=== PATIENT | male | born 1955 | race Caucasian/White ===

== ENCOUNTER 2016-04-28 14:11 | Inpatient (IN) | payer OTHER ==
[2016-04-28] MEDS ORDERED: Iohexol 350* (CONTRAST) 500 ML MDV IV ONE (17:03)
--- NOTE | 2016-04-28 18:14 | RAD ---
INDICATION: Shortness of breath. Assess for pulmonary embolism. Pancreatic carcinoma. COMPARISON: February 01, [address] and November 12, [address] TECHNIQUE: Multidetector CT images were obtained from the lung apices to the upper abdomen with 65 mL Omnipaque 350 IV contrast. Pulmonary angiogram protocol. Multiplanar reformation including with maximum intensity projection. REPORT: Bilateral patchy groundglass opacities throughout both lungs new compared with the prior CT exams. Small dependent RIGHT pleural effusion. Negative for thoracic lymphadenopathy, cardiomegaly, pericardial effusion. Tip of RIGHT chest port at superior vena cava RIGHT atrial junction. A few small subsegmental pulmonary emboli are visualized at the bilateral posterior basal segments of the lower lobes. Negative for more central pulmonary embolism. Multiple traumatic metastatic lesions with interval increase in size of individual lesions compared with the February 01, 2016 exam. Dominant lesion at the dome of the RIGHT anterior hepatic segment measures up to 3.8 x 3.2 cm compared with 3.3 x 2.5 cm previously. Index lesion at the subcapsular region of the RIGHT posterior hepatic segment on image 104 measures 2.7 x 2.1 cm compared with 2.3 x 1.9 cm previously. No definitive new hepatic lesions visualized. Negative for suspicious focal osseous lesions. IMPRESSION: 1. Moderately severe bilateral patchy groundglass opacities which may reflect infectious etiology or drug reaction. 2. A few small subsegmental pulmonary emboli are visualized at the bilateral posterior basal segments of the lower lobes. Negative for more central pulmonary embolism. 3. Progression of hepatic metastasis compared with the February 01, 2016 exam.
[2016-04-28] MEDS: NS 0.9% 1000 ML* 1,000 ML IV SCH (18:19)
--- NOTE | 2016-04-28 18:28 | RAD ---
INDICATION: Fever. Groundglass interstitial disease and few small subsegmental pulmonary emboli on CT of the same date. COMPARISON: CT angiogram chest the same date. TECHNIQUE: Dual energy PA and routine lateral views of the chest were obtained. REPORT: Mild prominence of the interstitial markings corresponding with interstitial findings on CT of the same date. Grossly clear pleural spaces. Negative for pneumothorax. The heart, pulmonary vasculature, and mediastinal contours are unremarkable. RIGHT chest port tip at level of superior vena cava RIGHT atrial junction. LEFT epigastric surgical clips. IMPRESSION: Interstitial prominence may reflect infectious etiology or potentially drug reaction.
[2016-04-28] MEDS ORDERED: Iohexol 350* (CONTRAST) 500 ML MDV IV NR (19:00)
[2016-04-28] MEDS: Cefepime(*) 2 GM in NS 0.9% 50 ML* 50 ML IVPB SCH (20:10)
[2016-04-28] MEDS: NS 0.9% 1000 ML* 1,000 ML IV ONE ×2 (20:30→22:18)
[2016-04-28] MEDS ORDERED: NS 0.9% 1000 ML* 1,000 ML IV ONE (20:44)
[2016-04-28] MEDS ORDERED: Prochlorperazine TAB* 10 MG PO PRN (20:45)
[2016-04-28] MEDS ORDERED: Ondansetron TAB* 4 MG PO PRN (21:07)
[2016-04-28] MEDS: Omeprazole CAP* 20 MG PO SCH (22:19)
[2016-04-29] MEDS: Temazepam CAP* 15 MG PO PRN ×2 (02:00→02:16)
[2016-04-29] MEDS: Cefepime(*) 2 GM in NS 0.9% 50 ML* 50 ML IVPB SCH ×3 (03:27→20:57)
[2016-04-29] MEDS ORDERED: Enoxaparin(*) 100 MG/ML SYR ONE (07:49)
[2016-04-29] MEDS: Pancrelipase (NF) 12,000 UNITS CAP.DR PO SCH ×2 (08:06→13:21)
--- NOTE | 2016-04-29 08:06 | PN ---
Progress Note - Progress Note SOAP: Subjective: called to see patient for decompensation and hypoxia over night. I was not notified of hypoxia (though did get called on hypotension responsive to fluids) . He is not mentating well this am but is able to tell me that he has pleuritic chest pain and cough. CTA last night read as moderate to severe patchy ground glass opacities and subsegmental small PEs (not called to ordering provider so no lovenox given until this am). Objective: Vital Signs Temp Pulse Resp BP Pulse Ox 98.9 F 122 33 91/48 87 04/29/16 07:32 04/29/16 07:58 04/29/16 07:58 04/29/16 07:32 04/29/16 07:59 ill appearing lying on side perr eomi op dry CTA tachycardic soft nt +bs trace le edema oriented to name and place, clearly somewhat confused, grossly nonfocal CTA: reviewed with Dr. Cooper, moderate to severe bilateral patchy ground glass opacities. very distal low burden PEs. progressive liver disease Acetaminophen (Tylenol Tab*) 650 mg PO Q6H PRN PRN Reason: TEMP > 100.5 Enoxaparin Sodium (Lovenox(*)) 100 mg SUBCUT DAILY [facility] Last Admin: 04/29/16 07:53 Dose: 100 mg Gabapentin (Neurontin Cap(*)) 600 mg PO BEDTIME PRN PRN Reason: SLEEP Sodium Chloride (Ns 0.9% 1000 Ml*) 1,000 mls @ 100 mls/hr IV PER RATE [facility] Last Admin: 04/28/16 18:19 Dose: 100 mls/hr Cefepime HCl 2 gm/ Sodium (Chloride) 50 mls @ 100 mls/hr IVPB Q8H [facility] Last Admin: 04/29/16 03:27 Dose: 100 mls/hr Iohexol (Omnipaque 350 (Contrast)-) 63 ml IV ONCE NR Stop: 04/30/16 17:02 Omeprazole (Prilosec Cap*) 20 mg PO BEDTIME [facility] Last Admin: 04/28/16 22:19 Dose: 20 mg Ondansetron HCl (Zofran Tab*) 4 mg PO Q6H PRN PRN Reason: NAUSEA/VOMITING Oxycodone HCl (Roxycodone Tab*) 5 mg PO Q6H PRN PRN Reason: PAIN Pancrelipase (Creon (Nf)) 12,000 units PO TID WITH MEALS [facility] Last Admin: 04/29/16 08:06 Dose: Not Given Prochlorperazine (Compazine Tab*) 10 mg PO Q6H PRN PRN Reason: NAUSEA Temazepam (Restoril Cap*) 30 mg PO BEDTIME PRN PRN Reason: SLEEP Last Admin: 04/29/16 02:00 Dose: 30 mg Assessment: 61 yo M w metastatic pancreatic cancer on palliative gemcitabine/abraxane presenting with fevers, cough, progressive weakness and pleuritic chest pain. CT with moderate to severe patchy ground glass opacities concerning for atypical infection (?PCP) also with distal PEs. Plan: -lovenox 1.5mg/kg/dy, stat dose given -transfer to ICU, full code per discussion yesterday with FREDY . will continue to address -veterinarian poultry and pulmonary consult, both called -check LDH -on cefepime, will broaden. consider PCP coverage, will defer to above consults -should be past wilmer counts at this point (due for cycle 4 day 1 tomorrow) pancreatic cancer: two lesions slightly larger on CT BUT CA 19-9 much lower suggesting response. will repeat CA 19-9 today.
[2016-04-29 08:24] LABS: Hematocrit 27 % (42-52); Hemoglobin 8.7 g/dl (14.0-18.0); Mean Corpuscular HGB Conc 32 g/dl (31-36); Mean Corpuscular Hemoglobin 30 pg (27-31); Mean Corpuscular Volume 93 fL (80-94); Mean Platelet Volume 7 um3 (7.4-10.4); Red Blood Count 2.91 10^6/ul (4.0-5.4); Red Cell Distribution Width 20 % (10.5-15)
[2016-04-29 08:25] LABS: Add Diff/Slide Review? Slide Review Added; Comments Flag Yes
[2016-04-29 08:38] LABS: Albumin 2.1 g/dL (3.2-5.2); BUN/Creatinine Ratio 18.2 (8-20); Calcium 7.2 mg/dL (8.6-10.3); EGFR African American 194.1 (>60); EGFR Non-African American 150.9 (>60); Globulin 2.2 g/dL (2-4); Potassium 3.5 mmol/L (3.5-5.0); Total Bilirubin 0.7 mg/dL (0.2-1.0); Total Protein 4.3 g/dL (6.4-8.9)
[2016-04-29] MEDS ORDERED: Enoxaparin(*) 100 MG/ML SYR SUBCUT SCH (09:00)
[2016-04-29] MEDS ORDERED: NS 0.9% 1000 ML* 1,000 ML IV ONE (11:48)
--- NOTE | 2016-04-29 11:48 | CONSULT ---
Consult Consult: Consultation Note Critical Care Requesting Physician: Dr Torres Reason for consult: hypoxic resp failure, sepsis Limitations in history/physical: none Date of consult: 04/29/2016 HPI: 61y M with pmhx of Metastatic Pancreatic Ca to Liver, s/p Whipple Procedure in September 2015; s/p chemo 3 cycles since december 2015. Patient reports progressive fatigue, weakness, poor appetite for weeks. Past few days has had cough+, chest pain on deep inspiration, chills, feeling cold, no fevers. denies vom/abd pain/cp/headache/dizziness. no falls. chronic loose bowel movements since whipple procedure. He came to the ER yesterday found to have elevated lactic acid, low blood pressure, borderline tachycardia and wbc elevation. He was admitted to the floor, given IVF bolus to improve blood pressure from 80's to 90s. Lactic acid was initially 2.8. He was also hypoxic to 80s last night and started on facemask. A CT chest PE protocol was ordered and found to have small bilateral subsegemental pulmonary emboli at bases as well as bilateral goundglass opacities, and liver mets. Because of hypoxic, intermittent hypotension and pneumonia he is upgraded to the ICU for respiratory and hemodynamic monitoring. He is awake, alert, able to give history, daughter at the bedside. CT scan results were not obtained till this morning because primary attending was not notified, he was started on anticoagulation and antibiotics this morning. ROS: all negative except for above mentioned positive findings. weight loss+, dec appetite+, cough+, sob+, chest pain+, LE swelling for past few days in feet+ . PMHx: Pancreatic Cancer with liver mets PSHx: Whipple procedure 2015 Family History: breast cancer in mother in her 80s Social History: Alcohol - use to drink 2+ glasses of wine for 22 years, stopped last year, Smoking - none, Drug use none Allergies: NKDA Medications: Home Meds Gabapentin 600 mg PO BEDTIME 09/10/12 [History Confirmed 04/28/16] Temazepam CAP* [Restoril CAP*] 30 mg PO BEDTIME PRN 09/10/12 [History Confirmed 04/28/16] Crestor 10 mg PO DAILY 11/06/15 [History Confirmed 04/28/16] Omeprazole CAP* 20 mg PO DAILY 11/06/15 [History Confirmed 04/28/16] Ondansetron TAB* [Zofran Tab*] 4 mg PO Q6H PRN 04/28/16 [History Confirmed 04/28] Oxycodone HCl [Oxaydo] 5 mg PO Q6HR PRN MDD 20mg 04/28/16 [History Confirmed ] Pancrelipase (NF) [Creon (NF)] 12,000 units PO TID WITH MEALS 04/28/16 [History Confirmed 04/28/16] Prochlorperazine TAB* [Compazine Tab*] 10 mg PO Q6H PRN 04/28/16 [History Confirmed 04/28/16] Current Medications Acetaminophen (Tylenol Tab*) 650 mg PO Q6H PRN PRN Reason: TEMP > 100.5 Enoxaparin Sodium (Lovenox(*)) 70 mg SUBCUT Q12H [facility] Gabapentin (Neurontin Cap(*)) 600 mg PO BEDTIME PRN PRN Reason: SLEEP Sodium Chloride (Ns 0.9% 1000 Ml*) 1,000 mls @ 100 mls/hr IV PER RATE [facility] Last Admin: 04/28/16 18:19 Dose: 100 mls/hr Cefepime HCl 2 gm/ Sodium (Chloride) 50 mls @ 100 mls/hr IVPB Q8H [facility] Last Admin: 04/29/16 03:27 Dose: 100 mls/hr Iohexol (Omnipaque 350 (Contrast)-) 63 ml IV ONCE NR Stop: 04/30/16 17:02 Omeprazole (Prilosec Cap*) 20 mg PO BEDTIME [facility] Last Admin: 04/28/16 22:19 Dose: 20 mg Ondansetron HCl (Zofran Tab*) 4 mg PO Q6H PRN PRN Reason: NAUSEA/VOMITING Oxycodone HCl (Roxycodone Tab*) 5 mg PO Q6H PRN PRN Reason: PAIN Pancrelipase (Creon (Nf)) 12,000 units PO TID WITH MEALS [facility] Last Admin: 04/29/16 08:06 Dose: Not Given Prochlorperazine (Compazine Tab*) 10 mg PO Q6H PRN PRN Reason: NAUSEA Temazepam (Restoril Cap*) 30 mg PO BEDTIME PRN PRN Reason: SLEEP Last Admin: 04/29/16 02:00 Dose: 30 mg Vitals: Vital Signs Temp 99.3 F 04/29/16 12:00 Pulse 92 04/29/16 11:15 Resp 23 04/29/16 11:15 BP 82/46 04/29/16 11:15 Pulse Ox 97 04/29/16 11:19 Intake & Output 04/28/16 04/29/16 04/29/16 18:59 06:59 18:59 Intake Total 290 770 350 Output Total 470 Balance 290 300 350 Weight 149 lb 11.2 oz Intake: IV Fluids 20 NS 0.9% 20 IVPB 50 cefepime 50 Oral 290 700 350 Output: Urine 470 Other: # Voids 1 O2/Vent: HF cannula 60% 25lpm ; rr 24, sat 95% Physical Exam: General - awake, alert, no acute resp distress, uncomfortable appearing but no diaphoresis HEENT pallor+, no icterus, dry mucous membranes Neck no stridor, no jvd CVS tachycardic, normal rhythm, no murmur Resp bilateral air entry, scattered basilar rhales, no wheeze, no distress, no acc muscle use Abdomen soft, nontender, nondistended, no rebound, bowel sounds present Ext pulses+, warm, edema b/l LE 1+ Skin intact, no breakdown, no dryness Neuro awake, alert, orientedx3, moving all extremities, no gross focal deficit Labs: Laboratory Results - last 24 hr 04/28/16 04/29/16 04/29/16 17:08 08:10 08:10 WBC 11.0 H RBC 2.91 L Hgb 8.7 L Hct 27 L MCV 93 MCH 30 MCHC 32 RDW 20 H Plt Count 366 MPV 7 L Neut % (Auto) 90.5 H Lymph % (Auto) 4.1 L Crosby % (Auto) 5.2 Eos % (Auto) 0 Baso % (Auto) 0.2 Absolute Neuts (auto) 10.0 H Absolute Lymphs (auto) 0.4 L Absolute Monos (auto) 0.6 Absolute Eos (auto) 0 Absolute Basos (auto) 0 Absolute Nucleated RBC 0.01 Nucleated RBC % 0.1 Sodium 135 Potassium 3.5 Chloride 106 Carbon Dioxide 22 Anion Gap 7 BUN 10 Creatinine 0.55 L Est GFR ( Amer) 194.1 Est GFR (Non-Af Amer) 150.9 BUN/Creatinine Ratio 18.2 Glucose 84 Lactic Acid 2.8 H* Calcium 7.2 L Total Bilirubin 0.70 AST 72 H ALT 30 Alkaline Phosphatase 198 H Lactate Dehydrogenase 492 H Total Protein 4.3 L Albumin 2.1 L Globulin 2.2 Albumin/Globulin Ratio 1.0 04/29/16 08:10 WBC RBC Hgb Hct MCV MCH MCHC RDW Plt Count MPV Neut % (Auto) Lymph % (Auto) Crosby % (Auto) Eos % (Auto) Baso % (Auto) Absolute Neuts (auto) Absolute Lymphs (auto) Absolute Monos (auto) Absolute Eos (auto) Absolute Basos (auto) Absolute Nucleated RBC Nucleated RBC % Sodium Potassium Chloride Carbon Dioxide Anion Gap BUN Creatinine Est GFR ( Amer) Est GFR (Non-Af Amer) BUN/Creatinine Ratio Glucose Lactic Acid 1.8 Calcium Total Bilirubin AST ALT Alkaline Phosphatase Lactate Dehydrogenase Total Protein Albumin Globulin Albumin/Globulin Ratio Imaging: CT chest results 04/28 reviewed - scattered groundglass infiltrates, subsegmental PE at bases, liver mets CXR 04/28 - reviewed Assessment: 61yM with metastatis pancreatic Ca admitted for lethargy, signs of sepsis; upgraded to ICU for hypoxia, hypotension, found to have bilateral subseg PE and ground glass infiltrates. -Acute Hypoxic Respiratory Failure -Multifocal infiltrates, suspicious for pneumonia, possible atypical origin -Bilateral Pulmonary Emboli -Hypotension, hypovolemia component, underlying sepsis+ -Severe Sepsis -Metastatic Pancreatic Cancer -Anemia, chronic disease Plan: Neuro- stable, awake, no focal deficit CVS- sepsis protocol. rescucitate with IVF, lactic acid improved. give 2 liters IVF bolus. repeat lactic acid. follow urine outputs. abx started. blood cx to be sent. goal to keep MAP>65 Resp- now on HF NC, saturations in mid 90s, not too tachypneic. wean fio2 to keep sat>92%. looks mildly distressed. infiltrates can be CAP vs atypical origin. pulm consult on board for possible bronch if required. resp cultures. albuterol q4h prn. steroids will be started low dose to cover for possible PCP 40mg po daily. increase A-A gradient. cxr in am. Change lovenox to 70mg sq bid therapeutic dose. ID- started on cefepime. send blood cx. resp cx. will add doxycycline and bactrim to cover atypical organisms. LDH elevated. GI- cont regular diet. GI prophylaxis. antiemetics prn. aspiration precautions. Renal- IVF hydration, follow urine output, follow lytes. no grimm. Heme- anemia. no occult bleeding. Lovenox 1mg/kg bid started for PE treatment. check LE duplex. plt normal. Endo- follow blood sugars. Musculsk- bed rest for now. pressure ulcer prophylaxis. oob to chair if able. DVT prophylaxis - lovenox sq GI prophylaxis -pepcid Central Line - none Arterial Line - none Grimm Cathetor - none Total Critical Care time is 35 minutes, excluding procedures/teaching Arash Corbin Cigarette Examiner
[2016-04-29] MEDS ORDERED: Albuterol 2.5 MG/3 ML NEB.SOL* (0.083%) INH PRN (13:19)
--- NOTE | 2016-04-29 13:45 | RAD ---
Indication: Pulmonary embolus. Duplex Doppler sonography of the deep venous system of both lower extremities was performed. Bilaterally the common femoral veins, proximal greater saphenous veins, proximal deep femoral veins, femoral veins, popliteal veins, posterior tibial veins and peroneal veins appear patent and compressible. IMPRESSION: NO EVIDENCE OF DEEP VENOUS THROMBOSIS OF EITHER LOWER EXTREMITY IS PRESENT. PERONEAL VEINS ARE NOT VISUALIZED BILATERALLY.
[2016-04-29] MEDS ORDERED: NS 0.9% 1000 ML* 1,000 ML IV SCH (15:45)
[2016-04-29] MEDS: DOXYcycline IV* 100 MG in NS 0.9% 250 ML* 250 ML IVPB SCH (15:50)
--- NOTE | 2016-04-29 16:57 | CONS ---
PULMONARY CONSULTATION REPORT: DATE OF CONSULT: 04/29/16 CONSULTATION REQUESTED BY: Dr. Chloe Torres. REASON FOR CONSULT: Evaluation of hypoxemia and CT chest abnormalities. HISTORY OF PRESENT ILLNESS: The patient is a 61-year-old male with a history of metastatic pancreatic cancer with mets to the liver, status post Whipple procedure in September of 2015 and status post chemo 3 cycles. The patient was admitted for evaluation of progressive fatigue, weakness, and decreased oral intake. The patient also reported dry cough and chest discomfort with deep inspiration, feeling cold. The patient denied fevers, nausea, vomiting, abdominal pain, chest pain, headache, dizziness, or neck stiffness. The patient has chronic loose stools since Whipple procedure. The patient was noted to have elevated lactic acid on labs done yesterday, was also hypotensive , and borderline tachycardic with leukocytosis. He was given IV fluids while on the regular medical floor. The patient's lactic acid was elevated at 2.8 upon admission, repeat labs showed improvement in lactic acid levels to normal limits. Overnight, the patient continued to deteriorate, became hypoxemic requiring high FiO2. A CT scan of the chest was performed which was done last night for evaluation of shortness of breath and pleuritic chest pain. The patient was transferred to ICU this morning for continued deterioration while on regular medical floor and given increased need for respiratory and hemodynamic monitoring. I have personally reviewed CT scan of the chest. The patient noted to have patchy bilateral ground-glass opacities predominantly in the lower lung zones. No significant mediastinal or hilar adenopathy was noted. There was also evidence of air bronchograms in the lower lobes. Evidence of mild bronchiectasis was also noted. Trachea was mildly enlarged in size. There was also progression of the liver mets. The patient also noted to have small subsegmental filling defects. The patient is currently being closely monitored in the ICU. The patient is drowsy; however, arousable easily to verbal stimuli. The patient reports feeling foggy. The patient denies shortness of breath. He reports chest discomfort with deep inspiration which has been present since admission and reports that is slightly improved. He reports significant fatigue currently. He was initiated on broad-spectrum antibiotics and Lovenox this morning. He is also receiving IV hydration. PAST MEDICAL HISTORY: Pancreatic cancer with liver mets, status post Whipple procedure in 2015. MEDICATIONS: At home: 1. Gabapentin. 2. Prochlorperazine. 3. Crestor. 4. Omeprazole. 5. Ondansetron. 6. Oxycodone. 7. Pancrelipase. 8. ALLERGIES: No known drug allergies. FAMILY HISTORY: Breast cancer in mother. SOCIAL HISTORY: Used to drink 2 glasses of wine, stopped last year. Denied smoking or drug abuse. REVIEW OF SYSTEMS: All systems reviewed and per HPI. PHYSICAL EXAM: The patient in bed, in no apparent distress while on high-flow O2. Arousable to verbal stimuli, answers questions appropriately, mildly confused. Vital Signs: Temperature is 99.3, heart rate 74 beats per minute, respiratory rate 18 per minute, O2 sat 94% on 50% FiO2, blood pressure 90/48. HEENT: Pupils equal, reactive to light, mucous membranes moist. Lungs: Good air entry bilaterally, fine crackles at the bases, no wheeze. Cardiovascular: S1, S2 present. Regular. Abdomen: Soft, nontender, nondistended. Bowel sounds present. Neuro: No focal deficits. Confused, oriented to self and place. Skin: No rash or bruise. DIAGNOSTIC STUDIES/LAB DATA: WBC count 11, hemoglobin 8.7, hematocrit 27, platelet count 366 with left shift. Sodium 135, potassium 3.5, chloride 106, bicarb 22, BUN 10, creatinine 0.5. Lactic acid 2.8 last night, repeat level of 1.8. LFTs elevated. LDH 492. CT of the chest as described above in HPI. Venous Doppler negative for DVT. IMPRESSION AND RECOMMENDATIONS: A 61-year-old male with a history of pancreatic cancer, on chemotherapy, admitted with worsening fatigue, chest discomfort, shortness of breath, and chills with bilateral ground-glass opacities and hypotension. Sepsis secondary to pneumonia. Ground-glass opacities bilaterally, likely community-acquired pneumonia, possibility of PCP pneumonia. Hypoxemic respiratory failure secondary to underlying pneumonia and pulmonary embolism. The patient being currently closely monitored in the ICU. The patient is significantly hypoxemic at this time, however, is stable. The patient not in need of intubation at this time. Continue with O2 supplementation as needed. The patient not stable for bronchoscopy at this time given significant hypoxemia which could worsen with BAL and bronchoscopy and sedation. Will empirically treat the patient for PCP pneumonia and community-acquired pneumonia. Management of sepsis as per lapidarist. Thank you for allowing me to participate in the care of your patient. Will follow up with you. Case discussed with Dr. Chloe Torres and Dr. Arash Corbin, lapidarist. [id number]/[facility] #: [id number] JIMMIE
[2016-04-29] MEDS: Acetaminophen TAB* 325 MG PO PRN (17:38)
[2016-04-29] MEDS: Pancrelipase CAP* 5,000 UNITS CAP PO SCH (17:38)
[2016-04-29] MEDS: Sulfamethox/Trimethoprim DS 800/160* TAB PO SCH (17:38)
[2016-04-29] MEDS: NS 0.9% 1000 ML* 1,000 ML IV SCH (18:16)
[2016-04-29] MEDS: Gabapentin CAP(*) 300 MG PO PRN (20:57)
[2016-04-29] MEDS: Enoxaparin(*) 80 MG/0.8 ML SYR SUBCUT SCH (20:58)
[2016-04-29] MEDS: Omeprazole CAP* 20 MG PO SCH (20:58)
[2016-04-29] MEDS ORDERED: Famotidine TAB* 20 MG PO SCH (21:00)
[2016-04-30] MEDS: Sulfamethox/Trimethoprim DS 800/160* TAB PO SCH ×5 (00:30→23:41)
[2016-04-30] MEDS: DOXYcycline IV* 100 MG in NS 0.9% 250 ML* 250 ML IVPB SCH ×2 (03:00→14:48)
[2016-04-30 08:18] LABS: Hematocrit 26 % (42-52); Hemoglobin 8.2 g/dl (14.0-18.0); Mean Corpuscular HGB Conc 31 g/dl (31-36); Mean Corpuscular Hemoglobin 30 pg (27-31); Mean Corpuscular Volume 94 fL (80-94); Mean Platelet Volume 7 um3 (7.4-10.4); Red Blood Count 2.77 10^6/ul (4.0-5.4); Red Cell Distribution Width 21 % (10.5-15); White Blood Count 11.4 10^3/ul (3.5-10.8)
[2016-04-30] MEDS: Pancrelipase CAP* 5,000 UNITS CAP PO SCH ×3 (08:28→18:09)
[2016-04-30] MEDS: Cefepime(*) 2 GM in NS 0.9% 50 ML* 50 ML IVPB SCH ×2 (08:28→21:05)
[2016-04-30 08:30] LABS: Albumin 1.9 g/dL (3.2-5.2); BUN/Creatinine Ratio 19.6 (8-20); Calcium 6.9 mg/dL (8.6-10.3); EGFR African American 238.6 (>60); EGFR Non-African American 185.5 (>60); Magnesium 1.7 mg/dL (1.9-2.7); Potassium 3.5 mmol/L (3.5-5.0); Total Bilirubin 0.5 mg/dL (0.2-1.0); Total Protein 3.9 g/dL (6.4-8.9)
--- NOTE | 2016-04-30 08:40 | RAD ---
INDICATION: Evaluate infiltrates COMPARISON: Most recent comparison chest x-rays dated April 28, 2016 TECHNIQUE: Single AP portable view of the chest was obtained. FINDINGS: Image quality is compromised due to the relative inferiority of a portable chest x-ray. The right subclavian vein Mediport is unchanged in position with the tip terminating in the superior vena cava. The heart and mediastinum exhibit normal size and contour. There has been progression of the appearance of density overlying the bilateral rito extending superiorly along the medial aspects of the upper lung lobes. There is worsening blunting of the right costophrenic angle. Visualized bones are normal for the patient's age. IMPRESSION: Interval worsening aeration when compared to the April 28, 2016 chest x-ray with findings that could be related to worsening congestive heart failure.
--- NOTE | 2016-04-30 09:11 | PN ---
Progress Note - Progress Note Note: Progress Note Critical Care 24 hour events/significant events: -transferred to ICU yesterday -overnight remained on HF NC, BP still labile but mostly in 90s now -IVF boluses; started on bactrim and doxycycline for empiric coverage. -he states some pleuritic chest pain, making urine, no diarrhea/fever/chills/n/v /headache. Vitals: Vital Signs Temp 99.4 F 04/30/16 07:53 Pulse 82 04/30/16 08:00 Resp 22 04/30/16 08:00 BP 100/60 04/30/16 08:00 Pulse Ox 100 04/30/16 08:00 Intake & Output 04/29/16 04/30/16 04/30/16 18:59 06:59 18:59 Intake Total 2820 2892 Output Total 660 850 Balance 2160 2042 Weight 162 lb 7.691 oz Intake: IV Fluids 1550 NS 0.9% 1500 cefepime 50 IVPB 2442 NS 0.9% 2392 cefepime 50 Oral 1270 450 Output: Urine 660 850 O2/Vent: HF 13L, sat 100%, rr 18-22 Infusions: NS @ 100cc/hour Medications: Current Medications Acetaminophen (Tylenol Tab*) 650 mg PO Q6H PRN PRN Reason: TEMP > 100.5 Last Admin: 04/29/16 17:38 Dose: 650 mg Albuterol (Ventolin 2.5 Mg/3 Ml Neb.Angelica*) 2.5 mg INH Q4H PRN PRN Reason: SOB/WHEEZING Enoxaparin Sodium (Lovenox(*)) 70 mg SUBCUT Q12H [facility] Last Admin: 04/29/16 20:58 Dose: 70 mg Gabapentin (Neurontin Cap(*)) 600 mg PO BEDTIME PRN PRN Reason: SLEEP Last Admin: 04/29/16 20:57 Dose: 600 mg Sodium Chloride (Ns 0.9% 1000 Ml*) 1,000 mls @ 100 mls/hr IV PER RATE [facility] Last Admin: 04/29/16 18:16 Dose: 100 mls/hr Doxycycline Hyclate 100 mg/ (Sodium Chloride) 250 mls @ 250 mls/hr IVPB Q12H [facility] Last Admin: 04/30/16 03:00 Dose: 250 mls/hr Cefepime HCl 2 gm/ Sodium (Chloride) 50 mls @ 100 mls/hr IVPB Q12HR [facility] Last Admin: 04/30/16 08:28 Dose: 100 mls/hr Sodium Chloride (Ns 0.9% 1000 Ml*) 1,000 mls @ 100 mls/hr IV PER RATE [facility] Last Admin: 04/29/16 18:15 Dose: 100 mls/hr Iohexol (Omnipaque 350 (Contrast)-) 63 ml IV ONCE NR Stop: 04/30/16 17:02 Omeprazole (Prilosec Cap*) 20 mg PO BEDTIME [facility] Last Admin: 04/29/16 20:58 Dose: 20 mg Ondansetron HCl (Zofran Tab*) 4 mg PO Q6H PRN PRN Reason: NAUSEA/VOMITING Oxycodone HCl (Roxycodone Tab*) 5 mg PO Q6H PRN PRN Reason: PAIN Pancrelipase (Zenpep Delayed Cap*) 15,000 units PO TID WITH MEALS [facility] Last Admin: 04/30/16 08:28 Dose: 15,000 units Prochlorperazine (Compazine Tab*) 10 mg PO Q6H PRN PRN Reason: NAUSEA Temazepam (Restoril Cap*) 30 mg PO BEDTIME PRN PRN Reason: SLEEP Last Admin: 04/29/16 02:00 Dose: 30 mg Trimethoprim/Sulfamethoxazole (Bactrim Ds 800/160 Tab*) 2 tab PO Q6HR [facility] Last Admin: 04/30/16 05:41 Dose: 2 tab Physical Exam: General - awake, alert, no acute resp distress, comfortable appearing, not diaphoretic HEENT- pallor+, no icterus, moist mucous membranes Neck- no stridor, no jvd CVS- not tachycardic, normal rhythm, no murmur Resp- bilateral air entry, scattered basilar rhales, no wheeze, no distress, no acc muscle use Abdomen- soft, nontender, nondistended, no rebound, bowel sounds present Ext- pulses+, warm, edema b/l LE 1+ Skin- intact, no breakdown, no dryness Neuro- awake, alert, orientedx3, moving all extremities, no gross focal deficit Labs: Laboratory Results - last 24 hr 04/29/16 04/30/16 04/30/16 15:01 08:00 08:00 WBC 11.4 H RBC 2.77 L Hgb 8.2 L Hct 26 L MCV 94 MCH 30 MCHC 31 RDW 21 H Plt Count 349 MPV 7 L Neut % (Auto) 89.3 H Lymph % (Auto) 4.5 L [place] % (Auto) 5.4 Eos % (Auto) 0.3 Baso % (Auto) 0.5 Absolute Neuts (auto) 10.2 H Absolute Lymphs (auto) 0.5 L Absolute Monos (auto) 0.6 Absolute Eos (auto) 0 Absolute Basos (auto) 0.1 Absolute Nucleated RBC 0 Nucleated RBC % 0 Sodium 137 Potassium 3.5 Chloride 110 Carbon Dioxide 22 Anion Gap 5 BUN 9 Creatinine 0.46 L Est GFR ( Amer) 238.6 Est GFR (Non-Af Amer) 185.5 BUN/Creatinine Ratio 19.6 Glucose 76 Lactic Acid Calcium 6.9 L Magnesium 1.7 L Total Bilirubin 0.50 AST 83 H ALT 32 Alkaline Phosphatase 215 H Total Protein 3.9 L Albumin 1.9 L Globulin 2.0 Albumin/Globulin Ratio 1.0 Influenza A (Rapid) Negative Influenza B (Rapid) Negative 04/30/16 08:00 WBC RBC Hgb Hct MCV MCH MCHC RDW Plt Count MPV Neut % (Auto) Lymph % (Auto) [place] % (Auto) Eos % (Auto) Baso % (Auto) Absolute Neuts (auto) Absolute Lymphs (auto) Absolute Monos (auto) Absolute Eos (auto) Absolute Basos (auto) Absolute Nucleated RBC Nucleated RBC % Sodium Potassium Chloride Carbon Dioxide Anion Gap BUN Creatinine Est GFR ( Amer) Est GFR (Non-Af Amer) BUN/Creatinine Ratio Glucose Lactic Acid 1.2 Calcium Magnesium Total Bilirubin AST ALT Alkaline Phosphatase Total Protein Albumin Globulin Albumin/Globulin Ratio Influenza A (Rapid) Influenza B (Rapid) Imaging: CT chest results 04/28 reviewed - scattered groundglass infiltrates, subsegmental PE at bases, liver mets CXR 04/28 - reviewed cxr 04/30 - increased pulm vasc congestion compared to yesterday LE venous duplex 04/29 - negative for DVT Assessment: 61yM with metastatis pancreatic Ca admitted for lethargy, signs of sepsis; upgraded to ICU for hypoxia, hypotension, found to have bilateral subseg PE and ground glass infiltrates. -Acute Hypoxic Respiratory Failure -Multifocal infiltrates, suspicious for pneumonia, possible atypical origin -Bilateral Pulmonary Emboli -Hypotension, hypovolemia component, underlying sepsis+ -Severe Sepsis -Metastatic Pancreatic Cancer -Anemia, chronic disease Plan: Neuro- stable, awake, no focal deficit CVS- sepsis protocol. IVF boluses given, now no maintainence infusion. lactic acid improved. bp still 90s, less tachycardic. still has intermittent pleuritic chest pain. Resp- now on HF NC 13L, saturations 100%, rr stable, no worsening tachypnea. wean fio2 to keep sat>92%. infiltrates can be CAP vs atypical origin. holding on bronchoscopy due to hypoxia, risk of intubation. resp cultures pending. albuterol q4h prn. no steroids. Lovenox 70mg sq bid for PE tx. may benefit from low dose lasix today to unload pulm congestion. ID- cefepime day#2, bactrim DS PCP tx day #2, doxy day#2. blood cx pending. resp cx if possible. LDH elevated. ID consult appreciated for further input. GI- cont regular diet. GI prophylaxis. antiemetics prn. aspiration precautions. Renal- IVF hydration, dec ivf to ns 50cc/hour, follow urine output, follow lytes. no grimm. Heme- anemia. no occult bleeding. Lovenox 70mg sq bid for PE tx. LE duplex negative. Endo- follow blood sugars. Musculsk- bed rest for now. pressure ulcer prophylaxis. oob to chair if able. DVT prophylaxis - lovenox sq GI prophylaxis -pepcid Central Line - none Arterial Line - none Grimm Cathetor - none Code Status: Full Code Disposition: ICU for hypoxic respiratory failure, suspected sepsis Total Critical Care time is 35 minutes, excluding procedures/teaching Arash Corbin MD Draw Fire Operator
[2016-04-30] MEDS: Enoxaparin(*) 80 MG/0.8 ML SYR SUBCUT SCH ×2 (10:01→21:05)
--- NOTE | 2016-04-30 10:22 | PN ---
Progress Note - Progress Note SOAP: Subjective: feels better than yesterday am. able to give me a better history. reports 4-5 weeks of progressive fatigue, cough and shaking chills at home. reports difficulty hearing when his oxygen is on. Objective: Vital Signs Temp Pulse Resp BP Pulse Ox 99.4 F 82 22 100/60 100 04/30/16 07:53 04/30/16 08:00 04/30/16 08:00 04/30/16 08:00 04/30/16 08:00 sitting up in a chair on salter breathing comfortably perr eomi op dry CTA bl s1 s2 nl soft nt +Bs trace le edema A+O x 3, nonfocal neurological exam Laboratory Results - last 24 hr 04/29/16 04/30/16 04/30/16 15:01 08:00 08:00 WBC 11.4 H RBC 2.77 L Hgb 8.2 L Hct 26 L MCV 94 MCH 30 MCHC 31 RDW 21 H Plt Count 349 MPV 7 L Neut % (Auto) 89.3 H Lymph % (Auto) 4.5 L [place] % (Auto) 5.4 Eos % (Auto) 0.3 Baso % (Auto) 0.5 Absolute Neuts (auto) 10.2 H Absolute Lymphs (auto) 0.5 L Absolute Monos (auto) 0.6 Absolute Eos (auto) 0 Absolute Basos (auto) 0.1 Absolute Nucleated RBC 0 Nucleated RBC % 0 Sodium 137 Potassium 3.5 Chloride 110 Carbon Dioxide 22 Anion Gap 5 BUN 9 Creatinine 0.46 L Est GFR ( Amer) 238.6 Est GFR (Non-Af Amer) 185.5 BUN/Creatinine Ratio 19.6 Glucose 76 Lactic Acid Calcium 6.9 L Magnesium 1.7 L Total Bilirubin 0.50 AST 83 H ALT 32 Alkaline Phosphatase 215 H Total Protein 3.9 L Albumin 1.9 L Globulin 2.0 Albumin/Globulin Ratio 1.0 Influenza A (Rapid) Negative Influenza B (Rapid) Negative 04/30/16 08:00 WBC RBC Hgb Hct MCV MCH MCHC RDW Plt Count MPV Neut % (Auto) Lymph % (Auto) [place] % (Auto) Eos % (Auto) Baso % (Auto) Absolute Neuts (auto) Absolute Lymphs (auto) Absolute Monos (auto) Absolute Eos (auto) Absolute Basos (auto) Absolute Nucleated RBC Nucleated RBC % Sodium Potassium Chloride Carbon Dioxide Anion Gap BUN Creatinine Est GFR ( Amer) Est GFR (Non-Af Amer) BUN/Creatinine Ratio Glucose Lactic Acid 1.2 Calcium Magnesium Total Bilirubin AST ALT Alkaline Phosphatase Total Protein Albumin Globulin Albumin/Globulin Ratio Influenza A (Rapid) Influenza B (Rapid) Acetaminophen (Tylenol Tab*) 650 mg PO Q6H PRN PRN Reason: TEMP > 100.5 Last Admin: 04/29/16 17:38 Dose: 650 mg Albuterol (Ventolin 2.5 Mg/3 Ml Neb.Angelica*) 2.5 mg INH Q4H PRN PRN Reason: SOB/WHEEZING Enoxaparin Sodium (Lovenox(*)) 70 mg SUBCUT Q12H [facility] Last Admin: 04/30/16 10:01 Dose: 70 mg Gabapentin (Neurontin Cap(*)) 600 mg PO BEDTIME PRN PRN Reason: SLEEP Last Admin: 04/29/16 20:57 Dose: 600 mg Sodium Chloride (Ns 0.9% 1000 Ml*) 1,000 mls @ 100 mls/hr IV PER RATE [facility] Last Admin: 04/29/16 18:16 Dose: 100 mls/hr Doxycycline Hyclate 100 mg/ (Sodium Chloride) 250 mls @ 250 mls/hr IVPB Q12H [facility] Last Admin: 04/30/16 03:00 Dose: 250 mls/hr Cefepime HCl 2 gm/ Sodium (Chloride) 50 mls @ 100 mls/hr IVPB Q12HR [facility] Last Admin: 04/30/16 08:28 Dose: 100 mls/hr Sodium Chloride (Ns 0.9% 1000 Ml*) 1,000 mls @ 50 mls/hr IV PER RATE [facility] Iohexol (Omnipaque 350 (Contrast)-) 63 ml IV ONCE NR Stop: 04/30/16 17:02 Omeprazole (Prilosec Cap*) 20 mg PO BEDTIME [facility] Last Admin: 04/29/16 20:58 Dose: 20 mg Ondansetron HCl (Zofran Tab*) 4 mg PO Q6H PRN PRN Reason: NAUSEA/VOMITING Oxycodone HCl (Roxycodone Tab*) 5 mg PO Q6H PRN PRN Reason: PAIN Pancrelipase (Zenpep Delayed Cap*) 15,000 units PO TID WITH MEALS [facility] Last Admin: 04/30/16 08:28 Dose: 15,000 units Prochlorperazine (Compazine Tab*) 10 mg PO Q6H PRN PRN Reason: NAUSEA Temazepam (Restoril Cap*) 30 mg PO BEDTIME PRN PRN Reason: SLEEP Last Admin: 04/29/16 02:00 Dose: 30 mg Trimethoprim/Sulfamethoxazole (Bactrim Ds 800/160 Tab*) 2 tab PO Q6HR [facility] Last Admin: 04/30/16 05:41 Dose: 2 tab Assessment: 61 yo M w PMH of metastatic pancreatic cancer on palliative gemcitabine/ abraxane admitted with fevers, chills, cough, hypoxia and progressive respiratory distress and found to have bilateral ground glass opacities and distal PEs. Clinically improving with current treatment, though still requiring significant O2. I discussed several issues at length with Armani and his daughter. 1)Pancreatic cancer: -his imaging shows slight progression of his disease by size but minimal with no new lesions and his CA 19-9 previously had been responding nicely. Given this I would repeat his tumor markers and if stable or decreasing I would likely give more gemcitabine/abraxane if he recovers from this illness. I would dose reduce for tolerance. 2)respiratory distress: improving with current management. agree with ID consultation. -cont lovenox for PE, I am ok with once daily dosing, but bid for procedures ok too we discussed code status at length. We reviewed the palliative nature of his treatments. He has expressed a desire to be DNR/DNI, though does want all medical interventions short of this. a MOLST was filled out.
--- NOTE | 2016-04-30 13:40 | CONS ---
CONSULTATION REPORT: DATE OF CONSULT: 04/30/16 REQUESTING PHYSICIAN: Dr. Corbin. CONSULTING SERVICE: Infectious Disease. REASON FOR CONSULT: Fever, hypoxia, and pneumonia. IMPRESSION: 1. Progressive dyspnea, hypoxia, acute hypoxemic respiratory failure, with fever and chills. CT scan shows bilateral ground-glass opacification in a man on chemotherapy, infection is on the differential which include the usual bacteria like pneumococcus and haemophilus, though I think those are less likely given the time course, atypicals are consideration as well, for fungal infection, pneumocystis is on the list, I think histoplasmosis or aspergillus less likely, could have a viral infection including adenovirus or human metapneumovirus. He also has been found to have pulmonary emboli. 2. Pancreatic cancer, status post Whipple's procedure with metastasis to the liver, ongoing chemotherapy. RECOMMENDATION: 1. Agree with cefepime and doxycycline to cover the usual community-acquired pneumonia organisms as well as Bactrim to cover pneumocystis pneumonia, I would add corticosteroids as adjunctive therapy. 2. Sputum culture if he is able to produce anything and would include a silver stain or pneumocystis PCR if he coughs anything up. HISTORY OF PRESENT ILLNESS: This is a 61-year-old man with metastatic pancreatic cancer, on chemotherapy, admitted with dyspnea and hypoxia. He was also found to have altered mental status initially which has improved with hydration. He can provide some details of his history. For the last 2 to 3 weeks, he has had progressive dyspnea including now at rest. He has had decreasing energy. He has not been eating or drinking much. He has felt quite dehydrated, was seen in the oncology office yesterday, was hypotensive, dehydrated, and altered, and so came to the hospital yesterday. He notes ongoing chills, night sweats, and nonproductive cough, but no overt fever. His initial oxygen saturation was in the mid 80s. He received supplemental oxygen. Blood pressure was in the 90s. He was started on IV fluids. Started on cefepime, doxycycline, and Bactrim overnight. He had a temperature of 38.3 actually earlier this morning and he had some sweats last night and chills. His energy and alertness, he feels, are improved. His dyspnea is about the same , but does not feel bad while he is at rest now with supplemental oxygen. He has not been up out of bed or chair. CT scan of the chest was done that showed bilateral patchy ground-glass opacification and subsegmental pulmonary emboli. His LDH is 492. His white count is 11. Influenza PCR was negative. He has had no sick contacts, he has had no diarrhea or muscle aches. He has been confined to bed at home, has not been doing any projects outside or in any [place], garages, or had any animal exposure except for the old cats at home. PAST MEDICAL HISTORY: 1. Pancreatic cancer, status post Whipple's procedure, now with metastatic disease to the liver, on chemotherapy. He was also treated with body radiation therapy in September 2015. 2. History of a right ankle fixation and subsequent hardware removal. MEDICATIONS: 1. Tylenol. 2. Albuterol inhaler. 3. Cefepime 2 g every 12 hours. 4. Doxycycline 100 mg every 12 hours. 5. Enoxaparin. 6. Gabapentin. 7. Zofran. 8. Pancrelipase. 9. Prochlorperazine. 10. Bactrim 2 tabs double strength by mouth every 6 hours. 11. Temazepam p.r.n. 12. Methylprednisolone 40 mg a day. ALLERGIES: No known drug allergies. FAMILY HISTORY: No recurrent infections. SOCIAL HISTORY: Lives in [place] with his daughter and son. Have a couple of cats there, no kittens. No travel. No sick contacts. REVIEW OF SYSTEMS: All negative except as noted above. PHYSICAL EXAM: Vital Signs: Temperature is 37.4, heart rate 90, respiratory rate 18, blood pressure 105/76, O2 sat 99% on 6 L. In general, he is awake and in no acute distress. Neurologically, he is oriented x3. Follows all commands , moves all extremities. HEENT: There is no conjunctival hemorrhage. Oropharynx without lesions. Neck: Neck is supple without nuchal rigidity. Lymph Nodes: There is no cervical, supraclavicular, inguinal, axillary, or epitrochlear lymphadenopathy. Heart has regular rate and rhythm without murmurs , rubs, or gallops. Lungs are clear to auscultation bilaterally though diminished at the bases bilaterally. He does have one sentence dyspnea. Abdomen: Soft, nontender, nondistended without hepatosplenomegaly. Skin: There is no rash or splinter hemorrhages. Musculoskeletal: There is no spine tenderness to palpation. LABORATORY DATA: Influenza PCR negative. White blood cell count 11.4, hemoglobin 8.2, MCV 94, platelets 349. Creatinine is 0.4. Please see impressions and recommendations as outlined above which I have discussed with Dr. Torres and . Thanks for asking me to see Nikhil Raul in consultation. [id number]/[facility] #: [id number] MTDD
--- NOTE | 2016-04-30 17:17 | PN ---
Progress Note - Progress Note Note: Pt seen and examined at bedside. Pt reported feeling about the same. Appears more alert. Active Medications Generic Name Dose Route Start Last Admin Trade Name Freq PRN Reason Stop Dose Admin Acetaminophen 650 mg 04/28/16 16:56 04/29/16 17:38 Tylenol Tab* PO 650 mg Q6H PRN Administration TEMP > 100.5 Albuterol 2.5 mg 04/29/16 13:19 Ventolin 2.5 Mg/3 Ml Neb.Angelica* INH Q4H PRN SOB/WHEEZING Enoxaparin Sodium 70 mg 04/29/16 22:00 04/30/16 10:01 Lovenox(*) SUBCUT 70 mg Q12H [facility] Administration Gabapentin 600 mg 04/28/16 20:16 04/29/16 20:57 Neurontin Cap(*) PO 600 mg BEDTIME PRN Administration SLEEP Sodium Chloride 1,000 mls @ 100 mls/hr 04/28/16 17:00 04/29/16 18:16 Ns 0.9% 1000 Ml* IV 100 mls/hr PER RATE [facility] Administration Doxycycline Hyclate 100 mg/ 250 mls @ 250 mls/hr 04/29/16 14:00 04/30/16 14: 48 Sodium Chloride IVPB 250 mls/hr Q12H [facility] Administration Cefepime HCl 2 gm/ Sodium 50 mls @ 100 mls/hr 04/29/16 21:00 04/30/16 08:28 Chloride IVPB 100 mls/hr Q12HR [facility] Administration Sodium Chloride 1,000 mls @ 50 mls/hr 04/30/16 09:14 Ns 0.9% 1000 Ml* IV PER RATE [facility] Methylprednisolone Sodium Succinate 40 mg 05/01/16 09:00 Solu-Medrol* IV DAILY [facility] Omeprazole 20 mg 04/28/16 21:00 04/29/16 20:58 Prilosec Cap* PO 20 mg BEDTIME [facility] Administration Ondansetron HCl 4 mg 04/28/16 21:07 Zofran Tab* PO Q6H PRN NAUSEA/VOMITING Oxycodone HCl 5 mg 04/28/16 20:54 Roxycodone Tab* PO Q6H PRN [facility] Pancrelipase 15,000 units 04/29/16 17:00 04/30/16 12:06 Zenpep Delayed Cap* PO Not Given TID WITH MEALS [facility] Prochlorperazine 10 mg 04/28/16 20:45 Compazine Tab* PO Q6H PRN NA[facility] Temazepam 30 mg 04/28/16 20:16 04/29/16 02:00 Restoril Cap* PO 30 mg BEDTIME PRN Administration SLEEP Trimethoprim/Sulfamethoxazole 2 tab 04/29/16 18:00 04/30/16 12:08 Bactrim Ds 800/160 Tab* PO 2 tab Q6HR [facility] Administration Vital Signs Temp Pulse Resp BP Pulse Ox 98 F 76 18 98/61 99 04/30/16 11:50 04/30/16 16:30 04/30/16 16:51 04/30/16 16:30 04/30/16 16:30 Physical Exam: General - awake, alert, no acute resp distress HEENT- PERRLA, no icterus, moist mucous membranes Neck- no stridor, no jvd CVS- s1, S2+, normal rhythm, no murmur Resp- bilateral air entry, scattered basilar rhales, no wheeze Abdomen- soft, nontender, nondistended, bowel sounds present Ext- pulses+, warm, edema b/l LE 1+ Skin- intact, no rash, no dryness Neuro- awake, alert, oriented x3, no focal defecits Labs: Laboratory Results - last 24 hr 04/29/16 04/30/16 04/30/16 15:01 08:00 08:00 WBC 11.4 H RBC 2.77 L Hgb 8.2 L Hct 26 L MCV 94 MCH 30 MCHC 31 RDW 21 H Plt Count 349 MPV 7 L Neut % (Auto) 89.3 H Lymph % (Auto) 4.5 L [place] % (Auto) 5.4 Eos % (Auto) 0.3 Baso % (Auto) 0.5 Absolute Neuts (auto) 10.2 H Absolute Lymphs (auto) 0.5 L Absolute Monos (auto) 0.6 Absolute Eos (auto) 0 Absolute Basos (auto) 0.1 Absolute Nucleated RBC 0 Nucleated RBC % 0 Sodium 137 Potassium 3.5 Chloride 110 Carbon Dioxide 22 Anion Gap 5 BUN 9 Creatinine 0.46 L Est GFR ( Amer) 238.6 Est GFR (Non-Af Amer) 185.5 BUN/Creatinine Ratio 19.6 Glucose 76 Lactic Acid Calcium 6.9 L Magnesium 1.7 L Total Bilirubin 0.50 AST 83 H ALT 32 Alkaline Phosphatase 215 H Total Protein 3.9 L Albumin 1.9 L Globulin 2.0 Albumin/Globulin Ratio 1.0 Influenza A (Rapid) Negative Influenza B (Rapid) Negative 04/30/16 08:00 WBC RBC Hgb Hct MCV MCH MCHC RDW Plt Count MPV Neut % (Auto) Lymph % (Auto) [place] % (Auto) Eos % (Auto) Baso % (Auto) Absolute Neuts (auto) Absolute Lymphs (auto) Absolute Monos (auto) Absolute Eos (auto) Absolute Basos (auto) Absolute Nucleated RBC Nucleated RBC % Sodium Potassium Chloride Carbon Dioxide Anion Gap BUN Creatinine Est GFR ( Amer) Est GFR (Non-Af Amer) BUN/Creatinine Ratio Glucose Lactic Acid 1.2 Calcium Magnesium Total Bilirubin AST ALT Alkaline Phosphatase Total Protein Albumin Globulin Albumin/Globulin Ratio Influenza A (Rapid) Influenza B (Rapid) Imaging: CT chest results 04/28 - scattered groundglass infiltrates, dense consolidation at bases, subsegmental PE in lower lobes, liver mets cxr 04/30 - increased pulm vasc congestion compared toCXR from 04/29 LE venous duplex 04/29 - negative for DVT Impression/Recommendations: 61y o m with metastatic pancreatic cancer admitted for lethargy, sSOB, transferred to ICU for hypoxic resp failure, hypotension and delirium. -Acute Hypoxic Respiratory Failure -Multifocal infiltrates, suspicious for health care associated pneumonia, less likely to be fungal or PCP -Bilateral Pulmonary Emboli -Hypotension, hypovolemia - sepsis -Metastatic Pancreatic Cancer On HF NC 13L, 60% FiO2, saturations 100% Wean fio2 to keep sat>92%. Bronchoscopy on hold due to hypoxia, risk of intubation. Emperically treated for PCP given immunosupressed state c/w Lovenox 70mg sq bid for PE c/w Cefepime day#2, bactrim DS PCP tx day #2, doxy day#2
[2016-04-30] MEDS ORDERED: NS 0.9% 50 ML* 50 ML ONE (20:56)
[2016-04-30] MEDS: NS 0.9% 1000 ML* 1,000 ML IV SCH ×2 (21:04→21:05)
[2016-04-30] MEDS: Omeprazole CAP* 20 MG PO SCH (21:04)
[2016-05-01] MEDS: DOXYcycline IV* 100 MG in NS 0.9% 250 ML* 250 ML IVPB SCH ×2 (01:25→13:31)
[2016-05-01] MEDS: Sulfamethox/Trimethoprim DS 800/160* TAB PO SCH ×4 (05:58→23:28)
[2016-05-01] MEDS: oxyCODONE TAB* 5 MG TAB PO PRN ×2 (06:05→21:00)
[2016-05-01] MEDS: Cefepime(*) 2 GM in NS 0.9% 50 ML* 50 ML IVPB SCH ×2 (09:14→21:00)
[2016-05-01] MEDS: methylPREDNISolone 125 MG* 2 ML VIAL IV SCH (09:14)
[2016-05-01] MEDS: Pancrelipase CAP* 5,000 UNITS CAP PO SCH ×3 (09:14→18:03)
--- NOTE | 2016-05-01 09:17 | PN ---
Progress Note - Progress Note Note: Progress Note Critical Care 24 hour events/significant events: -overnigth remains on NC -no fever/chills. sleeping not so well, did not get his temazepam for sleeping -otherwise feels about the same. daughter at bedside. Was in chair sitting for a few hours Vitals: Vital Signs Temp 98.8 F 05/01/16 00:00 Pulse 73 05/01/16 07:30 Resp 16 05/01/16 07:51 BP 103/61 05/01/16 07:30 Pulse Ox 97 05/01/16 07:30 Intake & Output 04/30/16 05/01/16 05/01/16 18:59 06:59 18:59 Intake Total 1214 1608 Output Total 275 800 Balance 939 808 Weight 158 lb 11.725 oz Intake: IV Fluids 597 1017 NS 0.9% 597 1017 IVPB 351 NS 0.9% 351 Oral 617 240 Output: Urine 275 800 Other: Estimated Void Large Date of Last Bowel 04/30/16 Movement Estimated Stool Amount Large O2/Vent: HF 13L, sat 100%, rr 18-22 Infusions: NS @ 50cc/hour Medications: Current Medications Acetaminophen (Tylenol Tab*) 650 mg PO Q6H PRN PRN Reason: TEMP > 100.5 Last Admin: 04/29/16 17:38 Dose: 650 mg Albuterol (Ventolin 2.5 Mg/3 Ml Neb.Angelica*) 2.5 mg INH Q4H PRN PRN Reason: SOB/WHEEZING Enoxaparin Sodium (Lovenox(*)) 70 mg SUBCUT Q12H [facility] Last Admin: 04/30/16 21:05 Dose: 70 mg Gabapentin (Neurontin Cap(*)) 600 mg PO BEDTIME PRN PRN Reason: SLEEP Last Admin: 04/29/16 20:57 Dose: 600 mg Sodium Chloride (Ns 0.9% 1000 Ml*) 1,000 mls @ 100 mls/hr IV PER RATE [facility] Last Admin: 04/29/16 18:16 Dose: 100 mls/hr Doxycycline Hyclate 100 mg/ (Sodium Chloride) 250 mls @ 250 mls/hr IVPB Q12H [facility] Last Admin: 05/01/16 01:25 Dose: 250 mls/hr Cefepime HCl 2 gm/ Sodium (Chloride) 50 mls @ 100 mls/hr IVPB Q12HR [facility] Last Admin: 05/01/16 09:14 Dose: 100 mls/hr Sodium Chloride (Ns 0.9% 1000 Ml*) 1,000 mls @ 50 mls/hr IV PER RATE [facility] Last Admin: 04/30/16 21:05 Dose: 50 mls/hr Methylprednisolone Sodium Succinate (Solu-Medrol*) 40 mg IV DAILY [facility] Last Admin: 05/01/16 09:14 Dose: 40 mg Omeprazole (Prilosec Cap*) 20 mg PO BEDTIME [facility] Last Admin: 04/30/16 21:04 Dose: 20 mg Ondansetron HCl (Zofran Tab*) 4 mg PO Q6H PRN PRN Reason: NAUSEA/VOMITING Oxycodone HCl (Roxycodone Tab*) 5 mg PO Q6H PRN PRN Reason: PAIN Last Admin: 05/01/16 06:05 Dose: 5 mg Pancrelipase (Zenpep Delayed Cap*) 15,000 units PO TID WITH MEALS [facility] Last Admin: 05/01/16 09:14 Dose: 15,000 units Prochlorperazine (Compazine Tab*) 10 mg PO Q6H PRN PRN Reason: NAUSEA Temazepam (Restoril Cap*) 30 mg PO BEDTIME PRN PRN Reason: SLEEP Last Admin: 04/29/16 02:00 Dose: 30 mg Trimethoprim/Sulfamethoxazole (Bactrim Ds 800/160 Tab*) 2 tab PO Q6HR [facility] Last Admin: 05/01/16 05:58 Dose: 2 tab Physical Exam: General - awake, alert, no acute resp distress, comfortable appearing, not diaphoretic HEENT- pallor+, no icterus, moist mucous membranes Neck- no stridor, no jvd CVS- not tachycardic, normal rhythm, no murmur Resp- bilateral air entry, scattered basilar rhales, no wheeze, no distress, no acc muscle use Abdomen- soft, nontender, nondistended, no rebound, bowel sounds present Ext- pulses+, warm, edema b/l LE 1+ Skin- intact, no breakdown, no dryness Neuro- awake, alert, orientedx3, moving all extremities, no gross focal deficit Labs: Laboratory Results - last 24 hr 04/29/16 04/30/16 08:10 08:00 CA 19-9 Antigen 4333 H Procalcitonin 0.7 H Imaging: CT chest results 04/28 reviewed - scattered groundglass infiltrates, subsegmental PE at bases, liver mets CXR 04/28 - reviewed cxr 04/30 - increased pulm vasc congestion compared to yesterday LE venous duplex 04/29 - negative for DVT Assessment: 61yM with metastatic pancreatic Ca admitted for lethargy, signs of sepsis; upgraded to ICU for hypoxia, hypotension, found to have bilateral subseg PE and ground glass infiltrates. -Acute Hypoxic Respiratory Failure -Multifocal infiltrates, suspicious for pneumonia, possible atypical origin -Bilateral Pulmonary Emboli -Hypotension, hypovolemia component, underlying sepsis+ -Severe Sepsis -Metastatic Pancreatic Cancer -Anemia, chronic disease Plan: Neuro- stable, awake, no focal deficit CVS- sepsis protocol. BP stable and now in 100s. on IVF NS 50cc/hour, making good urine, warm/perfusing, afebrile. Procal borderline+. still has intermittent pleuritic chest pain. Resp- On HF NC 13L, saturations 100%, rr stable, no worsening tachypnea. wean fio2 to keep sat>92%. infiltrates can be CAP vs atypical origin. holding on bronchoscopy due to hypoxia, risk of intubation. Cx neg so far. albuterol q4h prn. started on solumedrol 40mg iv daily for A-a gradient/hypoxia. Lovenox 70mg sq bid for PE tx. ID- cefepime day#3, bactrim DS PCP tx day #3, doxy day#3. Cx neg so far. resp cx if possible. ID consult reviewed. will continue abx, reassess after 5-7 days. GI- cont regular diet. GI prophylaxis. antiemetics prn. aspiration precautions. Renal- IVF hydration, ns 50cc/hour, follow urine output, follow lytes. no grimm. Heme- anemia. no occult bleeding. Lovenox 70mg sq bid for PE tx. LE duplex negative. Endo- follow blood sugars. Musculsk- oob to chair, ambulate if tolerated. pressure ulcer prophylaxis. DVT prophylaxis - lovenox sq bid tx GI prophylaxis -PPI Central Line - none Arterial Line - none Grimm Cathetor - none Code Status: code status changed to DNR. Disposition: ICU for hypoxic respiratory failure, suspected sepsis; Total Critical Care time is 30 minutes, excluding procedures/teaching Arash Corbin MD [employer]
--- NOTE | 2016-05-01 09:51 | PN ---
Progress Note - Progress Note SOAP: Subjective: feeling about the same to slightly better today. still on high flow O2 Objective: Vital Signs Temp Pulse Resp BP Pulse Ox 98.4 F 70 18 104/61 97 05/01/16 08:00 05/01/16 09:00 05/01/16 09:00 05/01/16 09:00 05/01/16 09:00 sitting up in nad perr eomi op moist CTA bl s1 s2 nl soft nt +bs no le edema A+Ox 3 nonfocal neuro exam Acetaminophen (Tylenol Tab*) 650 mg PO Q6H PRN PRN Reason: TEMP > 100.5 Last Admin: 04/29/16 17:38 Dose: 650 mg Albuterol (Ventolin 2.5 Mg/3 Ml Neb.Angelica*) 2.5 mg INH Q4H PRN PRN Reason: SOB/WHEEZING Enoxaparin Sodium (Lovenox(*)) 70 mg SUBCUT Q12H [facility] Last Admin: 04/30/16 21:05 Dose: 70 mg Gabapentin (Neurontin Cap(*)) 600 mg PO BEDTIME PRN PRN Reason: SLEEP Last Admin: 04/29/16 20:57 Dose: 600 mg Sodium Chloride (Ns 0.9% 1000 Ml*) 1,000 mls @ 100 mls/hr IV PER RATE [facility] Last Admin: 04/29/16 18:16 Dose: 100 mls/hr Doxycycline Hyclate 100 mg/ (Sodium Chloride) 250 mls @ 250 mls/hr IVPB Q12H [facility] Last Admin: 05/01/16 01:25 Dose: 250 mls/hr Cefepime HCl 2 gm/ Sodium (Chloride) 50 mls @ 100 mls/hr IVPB Q12HR [facility] Last Admin: 05/01/16 09:14 Dose: 100 mls/hr Sodium Chloride (Ns 0.9% 1000 Ml*) 1,000 mls @ 50 mls/hr IV PER RATE [facility] Last Admin: 04/30/16 21:05 Dose: 50 mls/hr Methylprednisolone Sodium Succinate (Solu-Medrol*) 40 mg IV DAILY [facility] Last Admin: 05/01/16 09:14 Dose: 40 mg Omeprazole (Prilosec Cap*) 20 mg PO BEDTIME [facility] Last Admin: 04/30/16 21:04 Dose: 20 mg Ondansetron HCl (Zofran Tab*) 4 mg PO Q6H PRN PRN Reason: NAUSEA/VOMITING Oxycodone HCl (Roxycodone Tab*) 5 mg PO Q6H PRN PRN Reason: PAIN Last Admin: 05/01/16 06:05 Dose: 5 mg Pancrelipase (Zenpep Delayed Cap*) 15,000 units PO TID WITH MEALS [facility] Last Admin: 05/01/16 09:14 Dose: 15,000 units Prochlorperazine (Compazine Tab*) 10 mg PO Q6H PRN PRN Reason: NAUSEA Temazepam (Restoril Cap*) 30 mg PO BEDTIME PRN PRN Reason: SLEEP Last Admin: 04/29/16 02:00 Dose: 30 mg Trimethoprim/Sulfamethoxazole (Bactrim Ds 800/160 Tab*) 2 tab PO Q6HR [facility] Last Admin: 05/01/16 05:58 Dose: 2 tab Assessment: 61 yo M w PMH of metastatic pancreatic cancer on palliative gemcitabine/ abraxane admitted with fevers, chills, cough, hypoxia and progressive respiratory distress and found to have bilateral ground glass opacities and distal PEs. Clinically improving on high flow O2. 1)Pancreatic cancer: -his imaging shows slight progression of his disease by size but minimal with no new lesions and his CA 19-9 is stable. I again reiterated that we could continue with gemcitabine/abraxane if he recovers from this illness, dose reduced for tolerance. His daughter asked a lot about technicalities of clinical trials as well as hospice and we spent a significant amount of time discussing this. 2)respiratory distress: improving with current management. -BID lovenox -broad spectrum ABX DNR/DNI
[2016-05-01 09:57] LABS: Hematocrit 27 % (42-52); Hemoglobin 8.6 g/dl (14.0-18.0); Mean Corpuscular HGB Conc 32 g/dl (31-36); Mean Corpuscular Hemoglobin 30 pg (27-31); Mean Corpuscular Volume 94 fL (80-94); Mean Platelet Volume 7 um3 (7.4-10.4); Red Blood Count 2.91 10^6/ul (4.0-5.4); Red Cell Distribution Width 22 % (10.5-15); White Blood Count 12.9 10^3/ul (3.5-10.8)
[2016-05-01 10:00] LABS: Add Diff/Slide Review? Slide Review Added; Comments Flag Yes
[2016-05-01] MEDS: Enoxaparin(*) 80 MG/0.8 ML SYR SUBCUT SCH ×2 (10:04→21:02)
[2016-05-01 10:15] LABS: Hypochromasia 1+; Polychromasia 1+
[2016-05-01 10:16] LABS: Tear Drop Cells 1+
[2016-05-01 10:17] LABS: BUN/Creatinine Ratio 14.3 (8-20); Calcium 7.2 mg/dL (8.6-10.3); EGFR African American 221.8 (>60); EGFR Non-African American 172.5 (>60); Globulin 2.5 g/dL (2-4); Magnesium 1.7 mg/dL (1.9-2.7); Potassium 3.7 mmol/L (3.5-5.0); Total Bilirubin 0.5 mg/dL (0.2-1.0); Total Protein 4.5 g/dL (6.4-8.9)
--- NOTE | 2016-05-01 14:32 | PN ---
Progress Note - Progress Note Note: Pulm consult f/u note 05/01/16. Pt seen and examined at bedside. Pt reports slight improvement in breathing. Intermittent cough present. Active Medications Generic Name Dose Route Start Last Admin Trade Name Freq PRN Reason Stop Dose Admin Acetaminophen 650 mg 04/28/16 16:56 04/29/16 17:38 Tylenol Tab* PO 650 mg Q6H PRN Administration TEMP > 100.5 Albuterol 2.5 mg 04/29/16 13:19 Ventolin 2.5 Mg/3 Ml Neb.Angelica* INH Q4H PRN SOB/WHEEZING Enoxaparin Sodium 70 mg 04/29/16 22:00 05/01/16 10:04 Lovenox(*) SUBCUT 70 mg Q12H [facility] Administration Gabapentin 600 mg 04/28/16 20:16 04/29/16 20:57 Neurontin Cap(*) PO 600 mg BEDTIME PRN Administration SLEEP Sodium Chloride 1,000 mls @ 100 mls/hr 04/28/16 17:00 04/29/16 18:16 Ns 0.9% 1000 Ml* IV 100 mls/hr PER RATE [facility] Administration Doxycycline Hyclate 100 mg/ 250 mls @ 250 mls/hr 04/29/16 14:00 05/01/16 13: 31 Sodium Chloride IVPB 250 mls/hr Q12H [facility] Administration Cefepime HCl 2 gm/ Sodium 50 mls @ 100 mls/hr 04/29/16 21:00 05/01/16 09:14 Chloride IVPB 100 mls/hr Q12HR [facility] Administration Sodium Chloride 1,000 mls @ 50 mls/hr 04/30/16 09:14 04/30/16 21:05 Ns 0.9% 1000 Ml* IV 50 mls/hr PER RATE [facility] Administration Methylprednisolone Sodium Succinate 40 mg 05/01/16 09:00 05/01/16 09:14 Solu-Medrol* IV 40 mg DAILY [facility] Administration Omeprazole 20 mg 04/28/16 21:00 04/30/16 21:04 Prilosec Cap* PO 20 mg BEDTIME [facility] Administration Ondansetron HCl 4 mg 04/28/16 21:07 Zofran Tab* PO Q6H PRN NAUSEA/VOMITING Oxycodone HCl 5 mg 04/28/16 20:54 05/01/16 06:05 Roxycodone Tab* PO 5 mg Q6H PRN Administration PAIN Pancrelipase 15,000 units 04/29/16 17:00 05/01/16 13:22 Zenpep Delayed Cap* PO Not Given TID WITH MEALS [facility] Prochlorperazine 10 mg 04/28/16 20:45 05/01/16 10:07 Compazine Tab* PO 10 mg Q6H PRN Administration NAUSEA Temazepam 30 mg 04/28/16 20:16 04/29/16 02:00 Restoril Cap* PO 30 mg BEDTIME PRN Administration SLEEP Trimethoprim/Sulfamethoxazole 2 tab 04/29/16 18:00 05/01/16 13:31 Bactrim Ds 800/160 Tab* PO 2 tab Q6HR [facility] Administration Vital Signs Temp Pulse Resp BP Pulse Ox 98.6 F 85 20 106/68 98 05/01/16 11:54 05/01/16 13:00 05/01/16 13:00 05/01/16 13:00 05/01/16 13:00 Physical Exam: General - awake, alert, no acute resp distress HEENT- PERRLA, no icterus, moist mucous membranes Neck- no stridor, no jvd CVS- s1, S2+, normal rhythm, no murmur Resp- bilateral air entry, scattered basilar rhales, no wheeze Abdomen- soft, nontender, nondistended, bowel sounds present Ext- pulses+, warm, edema b/l LE 1+ Skin- intact, no rash, no dryness Neuro- awake, alert, oriented x3, no focal defecits Labs: Laboratory Results - last 24 hr 04/29/16 05/01/16 05/01/16 08:10 09:45 09:45 WBC 12.9 H RBC 2.91 L Hgb 8.6 L Hct 27 L MCV 94 MCH 30 MCHC 32 RDW 22 H Plt Count 366 MPV 7 L Neut % (Auto) 87.8 H Lymph % (Auto) 6.3 L [place] % (Auto) 5.0 Eos % (Auto) 0.3 Baso % (Auto) 0.6 Absolute Neuts (auto) 11.3 H Absolute Lymphs (auto) 0.8 L Absolute Monos (auto) 0.6 Absolute Eos (auto) 0 Absolute Basos (auto) 0.1 Absolute Nucleated RBC 0.02 Nucleated RBC % 0.2 Normal RBC Morphology Not Reportable Polychromasia 1+ Hypochromasia 1+ Tear Drop Cells 1+ Sodium 133 Potassium 3.7 Chloride 106 Carbon Dioxide 22 Anion Gap 5 BUN 7 Creatinine 0.49 L Est GFR ( Amer) 221.8 Est GFR (Non-Af Amer) 172.5 BUN/Creatinine Ratio 14.3 Glucose 97 Calcium 7.2 L Magnesium 1.7 L Total Bilirubin 0.50 AST 73 H ALT 30 Alkaline Phosphatase 224 H Total Protein 4.5 L Albumin 2.0 L Globulin 2.5 Albumin/Globulin Ratio 0.8 L CA 19-9 Antigen 4333 H Imaging: CT chest results 04/28 - scattered groundglass infiltrates, dense consolidation at bases, subsegmental PE in lower lobes, liver mets cxr 04/30 - increased pulm vasc congestion compared toCXR from 04/29 LE venous duplex 04/29 - negative for DVT Impression/Recommendations: 61y o m with metastatic pancreatic cancer admitted for lethargy, sSOB, transferred to ICU for hypoxic resp failure, hypotension and delirium. -Acute Hypoxic Respiratory Failure, improving -Multifocal infiltrates, suspicious for health care associated pneumonia, less likely to be fungal or PCP -Bilateral Pulmonary Emboli -Hypotension, hypovolemia - sepsis -Metastatic Pancreatic Cancer FiO2 requirements improving Wean fio2 to keep sat>92%. Bronchoscopy on hold due to hypoxia, risk of intubation. Emperically treated for PCP given immunosupressed state Pt improving clinically c/w Lovenox 70mg sq bid for PE c/w Cefepime day#3, bactrim DS PCP tx day #3, doxy day#3
[2016-05-01] MEDS ORDERED: NS 0.9% 50 ML* 50 ML ONE (20:56)
[2016-05-01] MEDS: Omeprazole CAP* 20 MG PO SCH (21:01)
[2016-05-01] MEDS: Temazepam CAP* 15 MG PO PRN (21:01)
[2016-05-02] MEDS: NS 0.9% 1000 ML* 1,000 ML IV SCH (00:35)
[2016-05-02] MEDS: DOXYcycline IV* 100 MG in NS 0.9% 250 ML* 250 ML IVPB SCH ×2 (02:06→18:58)
[2016-05-02] MEDS: Sulfamethox/Trimethoprim DS 800/160* TAB PO SCH ×3 (05:48→20:37)
[2016-05-02 06:06] LABS: Hematocrit 26 % (42-52); Mean Corpuscular HGB Conc 31 g/dl (31-36); Mean Corpuscular Hemoglobin 30 pg (27-31); Mean Corpuscular Volume 94 fL (80-94); Mean Platelet Volume 7 um3 (7.4-10.4); Red Cell Distribution Width 22 % (10.5-15); White Blood Count 16.6 10^3/ul (3.5-10.8)
[2016-05-02 06:13] LABS: Add Diff/Slide Review? Slide Review Added; Comments Flag Yes
[2016-05-02 06:21] LABS: Albumin 1.8 g/dL (3.2-5.2); Calcium 7.5 mg/dL (8.6-10.3); EGFR African American 216.7 (>60); EGFR Non-African American 168.5 (>60); Globulin 2.4 g/dL (2-4); Magnesium 1.9 mg/dL (1.9-2.7); Potassium 4.3 mmol/L (3.5-5.0); Total Bilirubin 0.4 mg/dL (0.2-1.0); Total Protein 4.2 g/dL (6.4-8.9)
--- NOTE | 2016-05-02 09:23 | PN ---
Progress Note - Progress Note Note: Progress Note Critical Care 24 hour events/significant events: -overnigth remains on NC, down to 8 liters o2. -no fever/chills. sleeping not so well -no new complaints, breathing okay. making urine. no bleeding. Vitals: Vital Signs Temp 98.1 F 05/02/16 08:00 Pulse 74 05/02/16 09:00 Resp 16 05/02/16 09:00 BP 99/61 05/02/16 09:00 Pulse Ox 98 05/02/16 09:00 Intake & Output 05/01/16 05/02/16 05/02/16 18:59 06:59 18:59 Intake Total 1263 1688 Output Total 900 900 Balance 363 788 Weight 161 lb 6.054 oz Intake: IV Fluids 783 680 NS 0.9% 783 680 IVPB 368 ABX - DOXYCYCLINE 270 NS 0.9% 98 Oral 480 640 Output: Urine 900 900 Other: Date of Last Bowel 04/30/16 Movement O2/Vent: HF 10L, sat 100%, rr 18-22 Infusions: NS @ 50cc/hour Medications: Acetaminophen (Tylenol Tab*) 650 mg PO Q6H PRN PRN Reason: TEMP > 100.5 Last Admin: 04/29/16 17:38 Dose: 650 mg Albuterol (Ventolin 2.5 Mg/3 Ml Neb.Angelica*) 2.5 mg INH Q4H PRN PRN Reason: SOB/WHEEZING Enoxaparin Sodium (Lovenox(*)) 70 mg SUBCUT Q12H [facility] Last Admin: 05/01/16 21:02 Dose: 70 mg Gabapentin (Neurontin Cap(*)) 600 mg PO BEDTIME PRN PRN Reason: SLEEP Last Admin: 04/29/16 20:57 Dose: 600 mg Sodium Chloride (Ns 0.9% 1000 Ml*) 1,000 mls @ 100 mls/hr IV PER RATE [facility] Last Admin: 04/29/16 18:16 Dose: 100 mls/hr Doxycycline Hyclate 100 mg/ (Sodium Chloride) 250 mls @ 250 mls/hr IVPB Q12H [facility] Last Admin: 05/02/16 02:06 Dose: 250 mls/hr Cefepime HCl 2 gm/ Sodium (Chloride) 50 mls @ 100 mls/hr IVPB Q12HR [facility] Last Admin: 05/01/16 21:00 Dose: 100 mls/hr Sodium Chloride (Ns 0.9% 1000 Ml*) 1,000 mls @ 50 mls/hr IV PER RATE [facility] Last Admin: 05/02/16 00:35 Dose: 50 mls/hr Methylprednisolone Sodium Succinate (Solu-Medrol*) 40 mg IV DAILY [facility] Last Admin: 05/01/16 09:14 Dose: 40 mg Omeprazole (Prilosec Cap*) 20 mg PO BEDTIME [facility] Last Admin: 05/01/16 21:01 Dose: 20 mg Ondansetron HCl (Zofran Tab*) 4 mg PO Q6H PRN PRN Reason: NAUSEA/VOMITING Oxycodone HCl (Roxycodone Tab*) 5 mg PO Q6H PRN PRN Reason: PAIN Last Admin: 05/01/16 21:00 Dose: 5 mg Pancrelipase (Zenpep Delayed Cap*) 15,000 units PO TID WITH MEALS [facility] Last Admin: 05/01/16 18:03 Dose: 5,000 units Prochlorperazine (Compazine Tab*) 10 mg PO Q6H PRN PRN Reason: NAUSEA Last Admin: 05/01/16 10:07 Dose: 10 mg Temazepam (Restoril Cap*) 30 mg PO BEDTIME PRN PRN Reason: SLEEP Last Admin: 05/01/16 21:01 Dose: 30 mg Trimethoprim/Sulfamethoxazole (Bactrim Ds 800/160 Tab*) 2 tab PO Q6HR [facility] Last Admin: 05/02/16 05:48 Dose: 2 tab Physical Exam: General - awake, alert, no acute resp distress, comfortable appearing, not diaphoretic HEENT- pallor+, no icterus, moist mucous membranes Neck- no stridor, no jvd CVS- not tachycardic, normal rhythm, no murmur Resp- bilateral air entry, scattered basilar rhales, no wheeze, no distress, no acc muscle use Abdomen- soft, nontender, nondistended, no rebound, bowel sounds present Ext- pulses+, warm, edema b/l LE 1+ Skin- intact, no breakdown, no dryness Neuro- awake, alert, orientedx3, moving all extremities, no gross focal deficit Labs: Laboratory Results - last 24 hr 0105/01/16 05/02/16 09:45 09:45 06:00 WBC 12.9 H 16.6 H RBC 2.91 L 2.70 L Hgb 8.6 L 8.0 L Hct 27 L 26 L MCV 94 94 MCH 30 30 MCHC 32 31 RDW 22 H 22 H Plt Count 366 375 MPV 7 L 7 L Neut % (Auto) 87.8 H 89.8 H Lymph % (Auto) 6.3 L 5.7 L [place] % (Auto) 5.0 3.8 Eos % (Auto) 0.3 0.1 Baso % (Auto) 0.6 0.6 Absolute Neuts (auto) 11.3 H 14.9 H Absolute Lymphs (auto) 0.8 L 0.9 L Absolute Monos (auto) 0.6 0.6 Absolute Eos (auto) 0 0 Absolute Basos (auto) 0.1 0.1 Absolute Nucleated RBC 0.02 0.01 Nucleated RBC % 0.2 0.1 Normal RBC Morphology Not Reportable Polychromasia 1+ Hypochromasia 1+ Tear Drop Cells 1+ Sodium 133 Potassium 3.7 Chloride 106 Carbon Dioxide 22 Anion Gap 5 BUN 7 Creatinine 0.49 L Est GFR ( Amer) 221.8 Est GFR (Non-Af Amer) 172.5 BUN/Creatinine Ratio 14.3 Glucose 97 Calcium 7.2 L Magnesium 1.7 L Total Bilirubin 0.50 AST 73 H ALT 30 Alkaline Phosphatase 224 H Total Protein 4.5 L Albumin 2.0 L Globulin 2.5 Albumin/Globulin Ratio 0.8 L 05/02/16 06:00 WBC RBC Hgb Hct MCV MCH MCHC RDW Plt Count MPV Neut % (Auto) Lymph % (Auto) [place] % (Auto) Eos % (Auto) Baso % (Auto) Absolute Neuts (auto) Absolute Lymphs (auto) Absolute Monos (auto) Absolute Eos (auto) Absolute Basos (auto) Absolute Nucleated RBC Nucleated RBC % Normal RBC Morphology Polychromasia Hypochromasia Tear Drop Cells Sodium 133 Potassium 4.3 Chloride 106 Carbon Dioxide 23 Anion Gap 4 BUN 9 Creatinine 0.50 L Est GFR ( Amer) 216.7 Est GFR (Non-Af Amer) 168.5 BUN/Creatinine Ratio 18.0 Glucose 90 Calcium 7.5 L Magnesium 1.9 Total Bilirubin 0.40 AST 60 H ALT 27 Alkaline Phosphatase 205 H Total Protein 4.2 L Albumin 1.8 L Globulin 2.4 Albumin/Globulin Ratio 0.8 L Imaging: CT chest results 04/28 reviewed - scattered groundglass infiltrates, subsegmental PE at bases, liver mets CXR 04/28 - reviewed cxr 04/30 - increased pulm vasc congestion compared to yesterday LE venous duplex 04/29 - negative for DVT Assessment: 61yM with metastatic pancreatic Ca admitted for lethargy, signs of sepsis; upgraded to ICU for hypoxia, hypotension, found to have bilateral subseg PE and ground glass infiltrates. -Acute Hypoxic Respiratory Failure -Multifocal infiltrates, suspicious for pneumonia, possible atypical origin -Bilateral Pulmonary Emboli -Hypotension, hypovolemia component, underlying sepsis+ -Severe Sepsis -Metastatic Pancreatic Cancer -Anemia, chronic disease Plan: Neuro- stable, awake, no focal deficit CVS- BP stable, running 90s to low 100s,not tachycardic anymore. on IVF NS 50cc/ hour, making good urine, warm/perfusing, afebrile. Procal borderline+. still has intermittent pleuritic chest pain. Resp- On HF NC 8L overnight, but increased transiently to 10L, saturations 100% , rr stable, no worsening tachypnea. wean fio2 to keep sat>92%. infiltrates can be CAP vs atypical origin. holding on bronchoscopy due to hypoxia, risk of intubation. Cx neg so far. albuterol q4h prn. solumedrol 40mg iv daily for A-a gradient/hypoxia. Lovenox 70mg sq bid for PE tx. Would taper steroids over next 4-5 days, can switch to PO. ID- cefepime day#4, bactrim DS PCP tx day #4, doxy day#4. Cx neg so far. resp cx if possible. ID consult reviewed. will continue abx, reassess after 5-7 days. WBC increased but remains afebrile, could be 2/2 to steroids. cont to monitor. no change in therapy, clinically improved. GI- cont regular diet. GI prophylaxis. antiemetics prn. aspiration precautions. Renal- IVF hydration, ns 50cc/hour, follow urine output, follow lytes. no grimm. Heme- anemia. no occult bleeding. Lovenox 70mg sq bid for PE tx. LE duplex negative. WBC increased but may be reactive. will monitor. Endo- follow blood sugars. Musculsk- oob to chair, ambulate if tolerated. pressure ulcer prophylaxis. PT/OT DVT prophylaxis - lovenox sq bid tx GI prophylaxis -PPI Central Line - none Arterial Line - none Grimm Cathetor - none Code Status: DNR. Disposition: ICU for hypoxic respiratory failure, suspected sepsis; patient has been stable, slow decrease in O2 requirements, blood pressures stable. can be stable for transfer to monitored bed. continued ID and pulm f/u. Arash Corbin MD [employer]
[2016-05-02] MEDS: Pancrelipase CAP* 5,000 UNITS CAP PO SCH ×3 (09:29→20:37)
[2016-05-02] MEDS: Cefepime(*) 2 GM in NS 0.9% 50 ML* 50 ML IVPB SCH ×2 (09:32→21:52)
[2016-05-02] MEDS: methylPREDNISolone 125 MG* 2 ML VIAL IV SCH (09:32)
[2016-05-02] MEDS: Enoxaparin(*) 80 MG/0.8 ML SYR SUBCUT SCH ×2 (10:16→21:53)
[2016-05-02] MEDS ORDERED: Acetaminophen TAB* 325 MG PO ONE (11:30)
--- NOTE | 2016-05-02 11:30 | PN ---
Progress Note - Progress Note SOAP: Subjective: [] Breathing better. Still very SOB with any activity, walking. No fevers. Is getting better. Discussed past chemotherapy and very difficult. Does not want chemotherapy again. Acetaminophen (Tylenol Tab*) 650 mg PO Q6H PRN PRN Reason: TEMP > 100.5 Last Admin: 04/29/16 17:38 Dose: 650 mg Albuterol (Ventolin 2.5 Mg/3 Ml Neb.Angelica*) 2.5 mg INH Q4H PRN PRN Reason: SOB/WHEEZING Enoxaparin Sodium (Lovenox(*)) 70 mg SUBCUT Q12H [facility] Last Admin: 05/02/16 10:16 Dose: 70 mg Gabapentin (Neurontin Cap(*)) 600 mg PO BEDTIME PRN PRN Reason: SLEEP Last Admin: 04/29/16 20:57 Dose: 600 mg Sodium Chloride (Ns 0.9% 1000 Ml*) 1,000 mls @ 100 mls/hr IV PER RATE [facility] Last Admin: 04/29/16 18:16 Dose: 100 mls/hr Doxycycline Hyclate 100 mg/ (Sodium Chloride) 250 mls @ 250 mls/hr IVPB Q12H [facility] Last Admin: 05/02/16 02:06 Dose: 250 mls/hr Cefepime HCl 2 gm/ Sodium (Chloride) 50 mls @ 100 mls/hr IVPB Q12HR [facility] Last Admin: 05/02/16 09:32 Dose: 100 mls/hr Sodium Chloride (Ns 0.9% 1000 Ml*) 1,000 mls @ 50 mls/hr IV PER RATE [facility] Last Admin: 05/02/16 00:35 Dose: 50 mls/hr Methylprednisolone Sodium Succinate (Solu-Medrol*) 40 mg IV DAILY [facility] Last Admin: 05/02/16 09:32 Dose: 40 mg Omeprazole (Prilosec Cap*) 20 mg PO BEDTIME [facility] Last Admin: 05/01/16 21:01 Dose: 20 mg Ondansetron HCl (Zofran Tab*) 4 mg PO Q6H PRN PRN Reason: NAUSEA/VOMITING Oxycodone HCl (Roxycodone Tab*) 5 mg PO Q6H PRN PRN Reason: PAIN Last Admin: 05/01/16 21:00 Dose: 5 mg Pancrelipase (Zenpep Delayed Cap*) 15,000 units PO TID WITH MEALS [facility] Last Admin: 05/02/16 09:29 Dose: 10,000 units Prochlorperazine (Compazine Tab*) 10 mg PO Q6H PRN PRN Reason: NAUSEA Last Admin: 05/01/16 10:07 Dose: 10 mg Temazepam (Restoril Cap*) 30 mg PO BEDTIME PRN PRN Reason: SLEEP Last Admin: 05/01/16 21:01 Dose: 30 mg Trimethoprim/Sulfamethoxazole (Bactrim Ds 800/160 Tab*) 2 tab PO Q6HR [facility] Last Admin: 05/02/16 05:48 Dose: 2 tab Objective: Vital Signs Temp Pulse Resp BP Pulse Ox 97.4 F 90 22 97/66 98 05/02/16 11:02 05/02/16 10:01 05/02/16 10:01 05/02/16 10:01 05/02/16 10:01 Took O2 off for 5-10 min and stat 94% HEENT - Pale, no thrush, edema Crackles both sides, no wheezing and good air movement. no distress rrr s1s2 good bs, non tender, sitting edema +1. good pulses [] Assessment: 61 yo M w PMH of metastatic pancreatic cancer on palliative gemcitabine/ abraxane admitted with fevers, chills, cough, hypoxia and progressive respiratory distress and found to have bilateral ground glass opacities and distal PEs. Clinically improving on NC O2. 1)Pancreatic cancer: Imaging shows slight progression of his disease by size but minimal with no new lesions and his CA 19-9 is stable. Discussed at length and he does not want more chemotherapy. Does not really matter if cancer stable , better or worse. Will have hospice consult and he is leaning towards focus on QOL. He want to go to [place] with brother, encouraged he do that trip sooner then later once recovered from pneumonia. 2)respiratory distress: Improving. Will continue current antibiotics and if home with hospices complete course on po. Will continue Lovenox indefinitely. Continue to follow and stay in ICU today, transfer tomorrow if continues to improve and tolerates PRBC. 3) Anemia. Tx 1 U PRBC 4) DNR/DNI and continue other therapy. Daughter in room and in agreement with above plan face time 45 min with patient and daughter.
--- NOTE | 2016-05-02 14:50 | CONSULT ---
Palliative / Hospice Consult Ordering Provider: Georgi Avendaño Referal Reason: supportive care, hospice evaluation - Subjective Code Status: DNR Advance Directives Location: Filed at Another Location - History or Present Illness History or Present Illness: Pt is a 61 yo man with PMH pancreatic cancer s/p Whipple procedure in September 2015 who was undergoing palliative chemotherapy until he was admitted with lethargy and SOB and diagnosed with sepsis as well as atypical pneumonia (?PCP), distal PEs and hypoxic respiratory failure. He was transferred to the ICU and put on high flow O2. Today he is somewhat improved, requiring less O2. Although his cancer appears to be responding to treatment he does have liver mets and he has decided he doesn't want further chemotherapy. Pt is DNR/DNI. Hospice referral was made. I met with the pt in his room, along with his son Yonas. Pt was A&O and verbalized again to me that he doesn't wish to have any more chemotherapy and is interested in hospice. We discussed hospice eligibility, hospice services at home and at the [facility], the hospice philosophy of comfort care and QOL. He said he is hoping to take an out of state road trip with his brother once he has recovered from the pneumonia. He shared that his adult children live with him and care for him but they do work and he doesn't know how long that situation will be able to continue. I described [facility] and admission process and encouraged him to visit there if able after he is home and feeling better. He did state that he would like hospice services at discharge. Physical exam was deferred. Lab Values: Abnormal Lab Results 05/02/16 05/02/16 05/02/16 06:00 06:00 06:00 WBC 16.6 H RBC 2.70 L Hgb 8.0 L Hct 26 L MCV 94 MCH 30 MCHC 31 RDW 22 H Plt Count 375 MPV 7 L Neut % (Auto) 89.8 H Lymph % (Auto) 5.7 L [place] % (Auto) 3.8 Eos % (Auto) 0.1 Baso % (Auto) 0.6 Absolute Neuts (auto) 14.9 H Absolute Lymphs (auto) 0.9 L Absolute Monos (auto) 0.6 Absolute Eos (auto) 0 Absolute Basos (auto) 0.1 Absolute Nucleated RBC 0.01 Nucleated RBC % 0.1 Sodium 133 Potassium 4.3 Chloride 106 Carbon Dioxide 23 Anion Gap 4 BUN 9 Creatinine 0.50 L Est GFR ( Amer) 216.7 Est GFR (Non-Af Amer) 168.5 BUN/Creatinine Ratio 18.0 Glucose 90 Calcium 7.5 L Magnesium 1.9 Total Bilirubin 0.40 AST 60 H ALT 27 Alkaline Phosphatase 205 H Total Protein 4.2 L Albumin 1.8 L Globulin 2.4 Albumin/Globulin Ratio 0.8 L Blood Type O Positive Antibody Screen Negative Crossmatch See Detail Laboratory Last Values WBC 16.6 10^3/ul (3.5-10.8) H 05/02/16 06:00 RBC 2.70 10^6/ul (4.0-5.4) L 05/02/16 06:00 Hgb 8.0 g/dl (14.0-18.0) L 05/02/16 06:00 Hct 26 % (42-52) L 05/02/16 06:00 MCV 94 fL (80-94) 05/02/16 06:00 MCH 30 pg (27-31) 05/02/16 06:00 MCHC 31 g/dl (31-36) 05/02/16 06:00 RDW 22 % (10.5-15) H 05/02/16 06:00 Plt Count 375 10^3/ul (150-450) 05/02/16 06:00 MPV 7 um3 (7.4-10.4) L 05/02/16 06:00 Neut % (Auto) 89.8 % (38-83) H 05/02/16 06:00 Lymph % (Auto) 5.7 % (25-47) L 05/02/16 06:00 [place] % (Auto) 3.8 % (1-9) 05/02/16 06:00 Eos % (Auto) 0.1 % (0-6) 05/02/16 06:00 Baso % (Auto) 0.6 % (0-2) 05/02/16 06:00 Absolute Neuts (auto) 14.9 10^3/ul (1.5-7.7) H 05/02/16 06:00 Absolute Lymphs (auto) 0.9 10^3/ul (1.0-4.8) L 05/02/16 06:00 Absolute Monos (auto) 0.6 10^3/ul (0-0.8) 05/02/16 06:00 Absolute Eos (auto) 0 10^3/ul (0-0.6) 05/02/16 06:00 Absolute Basos (auto) 0.1 10^3/ul (0-0.2) 05/02/16 06:00 Absolute Nucleated RBC 0.01 10^3/ul 05/02/16 06:00 Nucleated RBC % 0.1 05/02/16 06:00 Normal RBC Morphology Not Reportable 05/01/16 09:45 Polychromasia 1+ 05/01/16 09:45 Hypochromasia 1+ 05/01/16 09:45 Tear Drop Cells 1+ 05/01/16 09:45 Sodium 133 mmol/L (133-145) 05/02/16 06:00 Potassium 4.3 mmol/L (3.5-5.0) 05/02/16 06:00 Chloride 106 mmol/L (101-111) 05/02/16 06:00 Carbon Dioxide 23 mmol/L (22-32) 05/02/16 06:00 Anion Gap 4 mmol/L (2-11) 05/02/16 06:00 BUN 9 mg/dL (6-24) 05/02/16 06:00 Creatinine 0.50 mg/dL (0.67-1.17) L 05/02/16 06:00 Est GFR ( Amer) 216.7 (>60) 05/02/16 06:00 Est GFR (Non-Af Amer) 168.5 (>60) 05/02/16 06:00 BUN/Creatinine Ratio 18.0 (8-20) 05/02/16 06:00 Glucose 90 mg/dL (70-100) 05/02/16 06:00 Lactic Acid 1.2 mmol/L (0.5-2.0) 04/30/16 08:00 Calcium 7.5 mg/dL (8.6-10.3) L 05/02/16 06:00 Magnesium 1.9 mg/dL (1.9-2.7) 05/02/16 06:00 Total Bilirubin 0.40 mg/dL (0.2-1.0) 05/02/16 06:00 AST 60 U/L (13-39) H 05/02/16 06:00 ALT 27 U/L (7-52) 05/02/16 06:00 Alkaline Phosphatase 205 U/L (34-104) H 05/02/16 06:00 Lactate Dehydrogenase 492 U/L (140-271) H 04/29/16 08:10 Total Protein 4.2 g/dL (6.4-8.9) L 05/02/16 06:00 Albumin 1.8 g/dL (3.2-5.2) L 05/02/16 06:00 Globulin 2.4 g/dL (2-4) 05/02/16 06:00 Albumin/Globulin Ratio 0.8 (1-3) L 05/02/16 06:00 CA 19-9 Antigen 4333 U/mL (<55) H 04/29/16 08:10 Procalcitonin 0.7 ng/mL (<0.6) H 04/30/16 08:00 Influenza A (Rapid) Negative (Negative) 04/29/16 15:01 Influenza B (Rapid) Negative (Negative) 04/29/16 15:01 Blood Type O Positive 05/02/16 06:00 Antibody Screen Negative 05/02/16 06:00 Crossmatch See Detail 05/02/16 06:00 - Objective Active Medications: Acetaminophen (Tylenol Tab*) 650 mg PO Q6H PRN PRN Reason: TEMP > 100.5 Last Admin: 04/29/16 17:38 Dose: 650 mg Albuterol (Ventolin 2.5 Mg/3 Ml Neb.Angelica*) 2.5 mg INH Q4H PRN PRN Reason: SOB/WHEEZING Enoxaparin Sodium (Lovenox(*)) 70 mg SUBCUT Q12H [facility] Last Admin: 05/02/16 10:16 Dose: 70 mg Gabapentin (Neurontin Cap(*)) 600 mg PO BEDTIME PRN PRN Reason: SLEEP Last Admin: 04/29/16 20:57 Dose: 600 mg Sodium Chloride (Ns 0.9% 1000 Ml*) 1,000 mls @ 100 mls/hr IV PER RATE [facility] Last Admin: 04/29/16 18:16 Dose: 100 mls/hr Doxycycline Hyclate 100 mg/ (Sodium Chloride) 250 mls @ 250 mls/hr IVPB Q12H [facility] Last Admin: 05/02/16 02:06 Dose: 250 mls/hr Cefepime HCl 2 gm/ Sodium (Chloride) 50 mls @ 100 mls/hr IVPB Q12HR [facility] Last Admin: 05/02/16 09:32 Dose: 100 mls/hr Sodium Chloride (Ns 0.9% 1000 Ml*) 1,000 mls @ 50 mls/hr IV PER RATE [facility] Last Admin: 05/02/16 00:35 Dose: 50 mls/hr Methylprednisolone Sodium Succinate (Solu-Medrol*) 40 mg IV DAILY [facility] Last Admin: 05/02/16 09:32 Dose: 40 mg Omeprazole (Prilosec Cap*) 20 mg PO BEDTIME [facility] Last Admin: 05/01/16 21:01 Dose: 20 mg Ondansetron HCl (Zofran Tab*) 4 mg PO Q6H PRN PRN Reason: NAUSEA/VOMITING Oxycodone HCl (Roxycodone Tab*) 5 mg PO Q6H PRN PRN Reason: PAIN Last Admin: 05/01/16 21:00 Dose: 5 mg Pancrelipase (Zenpep Delayed Cap*) 15,000 units PO TID WITH MEALS [facility] Last Admin: 05/02/16 13:01 Dose: 10,000 units Prochlorperazine (Compazine Tab*) 10 mg PO Q6H PRN PRN Reason: NAUSEA Last Admin: 05/01/16 10:07 Dose: 10 mg Temazepam (Restoril Cap*) 30 mg PO BEDTIME PRN PRN Reason: SLEEP Last Admin: 05/01/16 21:01 Dose: 30 mg Trimethoprim/Sulfamethoxazole (Bactrim Ds 800/160 Tab*) 2 tab PO Q6HR [facility] Last Admin: 05/02/16 12:33 Dose: 2 tab Vital Signs: Vital Signs: Temp Pulse Resp BP Pulse Ox 97.4 F 74 20 99/58 97 05/02/16 11:02 05/02/16 14:00 05/02/16 14:00 05/02/16 14:00 05/02/16 14:00 Patient Weight: Weight 161 lb 6.054 oz Intake and Output: Intake & Output 04/30/16 05/01/16 05/02/16 05/03/16 06:59 06:59 06:59 06:59 Intake Total 5712 2822 2951 1218 Output Total 1510 1075 1800 200 Balance 4202 1747 1151 1018 Weight 162 lb 7.691 oz 158 lb 11.725 oz 161 lb 6.054 oz Intake: IV Fluids 1550 1614 1463 258 NS 0.9% 1500 1614 1463 258 cefepime 50 IVPB 2442 351 368 ABX - DOXYCYCLINE 270 NS 0.9% 2392 351 98 cefepime 50 Oral 4546 914 5039 960 Output: Urine 1510 1075 1800 200 Other: Estimated Void Large Date of Last Bowel 04/30/16 04/30/16 Movement Estimated Stool Amount Large ADLs: Meal Record Start: 04/28/16 16: 35 Freq: DAILY@0900,1400,1800 Status: Complete Created 04/28/16 16:35 System (Rec: 04/28/16 16:35 System MED-C12) Document 04/28/16 18:00 [id number] (Rec: 04/28/16 22:10 [id number] MED-C11) ADLs: Meal Record Start: 04/29/16 08: 55 Freq: 09,13,18 Status: Active Created 04/29/16 08:55 [id number] (Rec: 04/29/16 08:55 [id number] ICU-C07) Document 04/29/16 09:00 [id number] (Rec: 04/29/16 10:50 [id number] ICU-C07) Document 04/29/16 13:00 [id number] (Rec: 04/29/16 15:25 [id number] ICU-C07) Document 04/29/16 18:00 [id number] (Rec: 04/29/16 19:40 [id number] ICU-C20) Document 04/30/16 09:00 [id number] (Rec: 04/30/16 10:04 [id number] ICU-C19) Document 04/30/16 13:00 [id number] (Rec: 04/30/16 13:50 [id number] ICU-C07) Document 04/30/16 18:00 [id number] (Rec: 04/30/16 21:37 [id number] ICU-C07) Document 05/01/16 09:00 [id number] (Rec: 05/01/16 09:53 [id number] ICU-C07) Document 05/01/16 13:00 [id number] (Rec: 05/01/16 13:35 [id number] ICU-C07) Document 05/02/16 09:00 [id number] (Rec: 05/02/16 09:43 [id number] ICU-C07) Document 05/02/16 13:00 [id number] (Rec: 05/02/16 13:55 [id number] ICU-C07) Intake and Output Start: 04/28/16 16: 35 Freq: DAILY@0600,1400,2200 Status: Complete Created 04/28/16 16:35 System (Rec: 04/28/16 16:35 System MED-C12) Document 04/28/16 22:00 [id number] (Rec: 04/28/16 22:12 [id number] MED-C11) Document 04/29/16 04:12 [id number] (Rec: 04/29/16 04:17 [id number] MED-C26) Intake and Output Start: 04/29/16 08: 55 Freq: 06,14,22 Status: Active Created 04/29/16 08:55 [id number] (Rec: 04/29/16 08:55 [id number] ICU-C07) Document 04/29/16 14:00 [id number] (Rec: 04/29/16 14:41 [id number] ICU-C07) Document 04/29/16 16:10 [id number] (Rec: 04/29/16 16:10 [id number] ICU-C07) Document 04/29/16 22:00 [id number] (Rec: 04/29/16 22:07 [id number] ICU-C20) Document 04/29/16 23:05 [id number] (Rec: 04/30/16 06:23 [id number] ICU-C07) Document 04/30/16 02:30 [id number] (Rec: 04/30/16 06:23 [id number] ICU-C07) Document 04/30/16 05:10 [id number] (Rec: 04/30/16 06:24 [id number] ICU-C07) Document 04/30/16 06:00 [id number] (Rec: 04/30/16 06:20 [id number] ICU-C20) Document 04/30/16 09:12 [id number] (Rec: 04/30/16 09:12 [id number] ICU-C19) Document 04/30/16 13:52 [id number] (Rec: 04/30/16 13:57 [id number] ICU-C07) Document 04/30/16 20:58 [id number] (Rec: 04/30/16 20:58 [id number] ICU-C15) Document 04/30/16 21:20 [id number] (Rec: 04/30/16 21:20 [id number] ICU-C07) Document 05/01/16 05:59 [id number] (Rec: 05/01/16 05:59 [id number] ICU-C14) Document 05/01/16 11:32 [id number] (Rec: 05/01/16 11:32 [id number] ICU-C07) Document 05/01/16 14:00 [id number] (Rec: 05/01/16 14:31 [id number] ICU-C07) Document 05/01/16 15:52 [id number] (Rec: 05/01/16 15:52 [id number] ICU-C15) Document 05/01/16 22:00 [id number] (Rec: 05/01/16 22:03 [id number] ICU-C07) Document 05/02/16 02:40 [id number] (Rec: 05/02/16 02:40 [id number] ICU-C12) Document 05/02/16 06:00 [id number] (Rec: 05/02/16 06:01 [id number] ICU-C12) Document 05/02/16 10:54 [id number] (Rec: 05/02/16 10:54 [id number] ICU-C07) Document 05/02/16 12:54 [id number] (Rec: 05/02/16 12:54 [id number] ICU-C07) - Assessment Assessment: 61 yo man with PMH pancreatic cancer, s/p Whipple and palliative chemotherapy, now with mets to liver. He is currently in the ICU being treated for sepsis/ atypical pneumonia/hypoxic respiratory failure, with improvement. Although his cancer appears to be responding to treatment, pt has decided he no longer wants chemotherapy and he would like hospice at home after discharge. I believe his prognosis is likely less than 3 mos. - Plan Consult Plan (MU): Hospice Plan: Palliative team will continue to follow pt with you and alert [facility] as to date of d/c as soon as it's known, so that we may admit him to home hospice on day of discharge. Thank you for the referral. - Time On Unit Date of Evaluation: 05/02/16 Hospice Consult Time in: 14:00 Hospice Consult Time Out: 15:00 Hospice Consult Time Total: 60
[2016-05-02] MEDS: Omeprazole CAP* 20 MG PO SCH (20:38)
[2016-05-02] MEDS: Temazepam CAP* 15 MG PO PRN (21:56)
[2016-05-02] MEDS: oxyCODONE TAB* 5 MG TAB PO PRN (22:43)
[2016-05-03] MEDS: Sulfamethox/Trimethoprim DS 800/160* TAB PO SCH ×5 (00:53→23:43)
[2016-05-03] MEDS: DOXYcycline IV* 100 MG in NS 0.9% 250 ML* 250 ML IVPB SCH ×2 (02:30→14:41)
[2016-05-03] MEDS: oxyCODONE TAB* 5 MG TAB PO PRN (05:15)
[2016-05-03] MEDS: NS 0.9% 1000 ML* 1,000 ML IV SCH (06:32)
[2016-05-03 07:03] LABS: Hematocrit 28 % (42-52); Hemoglobin 8.9 g/dl (14.0-18.0); Mean Corpuscular HGB Conc 32 g/dl (31-36); Mean Corpuscular Hemoglobin 30 pg (27-31); Mean Corpuscular Volume 92 fL (80-94); Mean Platelet Volume 8 um3 (7.4-10.4); Red Blood Count 3.02 10^6/ul (4.0-5.4); Red Cell Distribution Width 22 % (10.5-15)
[2016-05-03 07:05] LABS: BUN/Creatinine Ratio 23.4 (8-20); Calcium 7.6 mg/dL (8.6-10.3); Comments Flag Yes; EGFR African American 232.7 (>60); Globulin 2.5 g/dL (2-4); Potassium 4.2 mmol/L (3.5-5.0); Total Bilirubin 0.5 mg/dL (0.2-1.0); Total Protein 4.5 g/dL (6.4-8.9)
--- NOTE | 2016-05-03 08:16 | PN ---
Progress Note - Progress Note SOAP: Subjective: markedly improved clinically. breathing better. discussion with hospice from yesterday reviewed with patient. no bowel movement since Thursday Objective: Vital Signs Temp Pulse Resp BP Pulse Ox 99.1 F 67 17 98/59 94 05/03/16 08:00 05/03/16 06:35 05/03/16 06:35 05/03/16 06:00 05/03/16 06:35 sitting up in NAD, off O2 at his request satting 89-90% perr eomi op moist CTA bl s1 s2 nl soft nt +bs trace le edema A+O x 3 nonfocal neurological exam Laboratory Results - last 24 hr 05/02/16 05/03/16 05/03/16 06:00 05:45 05:45 WBC 18.0 H RBC 3.02 L Hgb 8.9 L Hct 28 L MCV 92 MCH 30 MCHC 32 RDW 22 H Plt Count 380 MPV 8 Sodium 131 L Potassium 4.2 Chloride 105 Carbon Dioxide 23 Anion Gap 3 BUN 11 Creatinine 0.47 L Est GFR ( Amer) 232.7 Est GFR (Non-Af Amer) 181.0 BUN/Creatinine Ratio 23.4 H Glucose 80 Calcium 7.6 L Total Bilirubin 0.50 AST 73 H ALT 38 Alkaline Phosphatase 250 H Total Protein 4.5 L Albumin 2.0 L Globulin 2.5 Albumin/Globulin Ratio 0.8 L Blood Type O Positive Antibody Screen Negative Crossmatch See Detail Acetaminophen (Tylenol Tab*) 650 mg PO Q6H PRN PRN Reason: TEMP > 100.5 Last Admin: 04/29/16 17:38 Dose: 650 mg Albuterol (Ventolin 2.5 Mg/3 Ml Neb.Angelica*) 2.5 mg INH Q4H PRN PRN Reason: SOB/WHEEZING Gabapentin (Neurontin Cap(*)) 600 mg PO BEDTIME PRN PRN Reason: SLEEP Last Admin: 04/29/16 20:57 Dose: 600 mg Doxycycline Hyclate 100 mg/ (Sodium Chloride) 250 mls @ 250 mls/hr IVPB Q12H [facility] Last Admin: 05/03/16 02:30 Dose: 250 mls/hr Sodium Chloride (Ns 0.9% 1000 Ml*) 1,000 mls @ 50 mls/hr IV PER RATE [facility] Last Admin: 05/03/16 06:32 Dose: 50 mls/hr Omeprazole (Prilosec Cap*) 20 mg PO BEDTIME [facility] Last Admin: 05/02/16 20:38 Dose: 20 mg Ondansetron HCl (Zofran Tab*) 4 mg PO Q6H PRN PRN Reason: NAUSEA/VOMITING Oxycodone HCl (Roxycodone Tab*) 5 mg PO Q6H PRN PRN Reason: PAIN Last Admin: 05/03/16 05:15 Dose: 5 mg Pancrelipase (Zenpep Delayed Cap*) 15,000 units PO TID WITH MEALS [facility] Last Admin: 05/02/16 20:37 Dose: Not Given Polyethylene Glycol/Electrolytes (Miralax*) 17 gm PO ONCE ONE Stop: 05/03/16 09:01 Prednisone (Deltasone Tab*) 60 mg PO DAILY [facility] Prochlorperazine (Compazine Tab*) 10 mg PO Q6H PRN PRN Reason: NAUSEA Last Admin: 05/01/16 10:07 Dose: 10 mg Rivaroxaban (Xarelto(*)) 15 mg PO BID [facility] Senna (Senokot Tab*) 2 tab PO BEDTIME [facility] Temazepam (Restoril Cap*) 30 mg PO BEDTIME PRN PRN Reason: SLEEP Last Admin: 05/02/16 21:56 Dose: 30 mg Trimethoprim/Sulfamethoxazole (Bactrim Ds 800/160 Tab*) 2 tab PO Q6HR [facility] Last Admin: 05/03/16 05:14 Dose: 2 tab Assessment: 61 yo M w metastatic pancreatic cancer on palliative gem/abraxane admitted with respiratory distress from either PCP PNA (I favor this diagnosis) or community acquired pna, as well as bilateral pulmonary emboli. Clinically he is markedly improved. He did discuss with the palliative care team hospice on discharge which is completely appropriate. Plan: -cont doxycycline, will stop cefepime at this point -cont bactrim PO for PCP -change steroids to PO -O2 on ambulation still necessary, stressed this with Alejandro -ok to transfer to medical floor Leukocytosis: likely from steroids PE: switch to xeralto PO, 15 mg po bid x 3 weeks then 20 mg daily hypotension: stable and asymptomatic cont hydration constipation: miralax x 1 now, senna at bedtime scheduled, hold for diarrhea insomnia: ok to add back temazepam, even with hypotension (comfort measures) dnr/dni hospice on discharge
[2016-05-03] MEDS ORDERED: Polyethylene Glycol 3350* 17 GM PACKET PO ONE (09:00)
[2016-05-03] MEDS ORDERED: predniSONE TAB* 20 MG PO SCH (09:00)
[2016-05-03] MEDS: Pancrelipase CAP* 5,000 UNITS CAP PO SCH ×3 (09:16→17:40)
[2016-05-03] MEDS: predniSONE TAB* 20 MG PO SCH ×2 (09:17→22:34)
[2016-05-03] MEDS: Rivaroxaban TAB(*) 15 MG PO SCH ×2 (11:26→22:33)
[2016-05-03] MEDS: Omeprazole CAP* 20 MG PO SCH (22:33)
[2016-05-03] MEDS: Gabapentin CAP(*) 300 MG PO PRN (22:33)
[2016-05-03] MEDS: Temazepam CAP* 15 MG PO PRN (22:33)
[2016-05-03] MEDS: Senna TAB PO SCH (22:34)
[2016-05-04] MEDS: DOXYcycline IV* 100 MG in NS 0.9% 250 ML* 250 ML IVPB SCH ×2 (02:08→13:46)
[2016-05-04] MEDS: Sulfamethox/Trimethoprim DS 800/160* TAB PO SCH ×4 (06:06→23:28)
[2016-05-04] MEDS: NS 0.9% 1000 ML* 1,000 ML IV SCH (06:09)
[2016-05-04] MEDS: Pancrelipase CAP* 5,000 UNITS CAP PO SCH ×3 (09:02→17:29)
[2016-05-04] MEDS: predniSONE TAB* 20 MG PO SCH ×2 (09:04→20:39)
[2016-05-04] MEDS: Rivaroxaban TAB(*) 15 MG PO SCH ×2 (09:04→20:39)
--- NOTE | 2016-05-04 14:40 | PN ---
Subjective Date of Service: 05/04/16 Interval History: Mild pleuritic chest pain. Very little cough. Not SOB at rest. C/O flatus. Eating fair. No BM recently. Objective Active Medications: Acetaminophen (Tylenol Tab*) 650 mg PO Q6H PRN PRN Reason: TEMP > 100.5 Last Admin: 04/29/16 17:38 Dose: 650 mg Albuterol (Ventolin 2.5 Mg/3 Ml Neb.Angelica*) 2.5 mg INH Q4H PRN PRN Reason: SOB/WHEEZING Gabapentin (Neurontin Cap(*)) 600 mg PO BEDTIME PRN PRN Reason: SLEEP Last Admin: 05/03/16 22:33 Dose: 600 mg Doxycycline Hyclate 100 mg/ (Sodium Chloride) 250 mls @ 250 mls/hr IVPB Q12H [facility] Last Admin: 05/04/16 13:46 Dose: 250 mls/hr Sodium Chloride (Ns 0.9% 1000 Ml*) 1,000 mls @ 50 mls/hr IV PER RATE [facility] Last Admin: 05/04/16 06:09 Dose: 50 mls/hr Omeprazole (Prilosec Cap*) 20 mg PO BEDTIME [facility] Last Admin: 05/03/16 22:33 Dose: 20 mg Ondansetron HCl (Zofran Tab*) 4 mg PO Q6H PRN PRN Reason: NAUSEA/VOMITING Oxycodone HCl (Roxycodone Tab*) 5 mg PO Q6H PRN PRN Reason: PAIN Last Admin: 05/03/16 05:15 Dose: 5 mg Pancrelipase (Zenpep Delayed Cap*) 15,000 units PO TID WITH MEALS [facility] Last Admin: 05/04/16 11:46 Dose: Not Given Prednisone (Deltasone Tab*) 40 mg PO BID [facility] Last Admin: 05/04/16 09:04 Dose: 40 mg Prochlorperazine (Compazine Tab*) 10 mg PO Q6H PRN PRN Reason: NAUSEA Last Admin: 05/01/16 10:07 Dose: 10 mg Rivaroxaban (Xarelto(*)) 15 mg PO BID [facility] Last Admin: 05/04/16 09:04 Dose: 15 mg Senna (Senokot Tab*) 2 tab PO BEDTIME [facility] Last Admin: 05/03/16 22:34 Dose: 2 tab Temazepam (Restoril Cap*) 30 mg PO BEDTIME PRN PRN Reason: SLEEP Last Admin: 05/03/16 22:33 Dose: 30 mg Trimethoprim/Sulfamethoxazole (Bactrim Ds 800/160 Tab*) 2 tab PO Q6HR [facility] Last Admin: 05/04/16 11:59 Dose: 2 tab Vital Signs 05/03/16 05/03/16 05/03/16 15:30 19:43 20:00 Temperature 97.3 F 97.2 F Pulse Rate 68 66 Respiratory 20 20 16 Rate Blood Pressure 103/68 104/61 (mmHg) O2 Sat by Pulse 96 96 Oximetry 05/03/16 05/03/16 05/04/16 22:33 23:45 00:33 Temperature Pulse Rate 73 70 Respiratory 14 18 16 Rate Blood Pressure 93/55 (mmHg) O2 Sat by Pulse 94 96 Oximetry 05/04/16 05/04/16 05/04/16 03:09 07:12 10:00 Temperature 96.6 F Pulse Rate 66 66 Respiratory 16 16 18 Rate Blood Pressure 104/62 96/68 (mmHg) O2 Sat by Pulse 96 94 Oximetry Oxygen Devices in Use Now: None Appearance: Alert, partly up in bed. In good spirits. Looks comfortable. Eyes: No Scleral Icterus Ears/Nose/Mouth/Throat: Clear Oropharnyx, Mucous Membranes Moist Neck: NL Appearance and Movements; NL JVP, No Thyroid Enlargement, Masses Respiratory: Symmetrical Chest Expansion and Respiratory Effort, Clear to Auscultation, Clear to Percussion Cardiovascular: NL Sounds; No Murmurs; No JVD, RRR, No Edema, - Extremities: No Edema, No Clubbing, Cyanosis, - Skin: No Rash or Ulcers, No Nodules or Sclerosis, - - alopecia. Neurological: Alert and Oriented x 3, NL Sensation Result Diagrams: 05/03/16 05:45 05/03/16 05:45 Microbiology and Other Data: Microbiology 05/03/16 05:30 Gram Stain - Final Sputum Expectorated 04/28/16 18:10 Urine Culture - Final Urine No Growth (<1,000 CFU/mL) 04/29/16 14:49 Influenza Types A,B Antigen ([facility]) - Final Nasal Specimen received for Influenza A/B Molecular testing Assess/Plan/Problems-Billing Assessment: - Patient Problems (1) Pulmonary embolism Current Visit: Yes Status: Acute Code(s): I26.99 - OTHER PULMONARY EMBOLISM WITHOUT ACUTE COR PULMONALE SNOMED Code(s): 32332461 Comment: Continue rivaroxaban. (2) PNA (pneumonia) Current Visit: Yes Status: Acute Code(s): J18.9 - PNEUMONIA, UNSPECIFIED ORGANISM SNOMED Code(s): 863812702 Comment: Continue IV doxycycline, oral TMP/SMX, prednisone. (3) Pancreatic cancer Current Visit: Yes Status: Acute Comment: Continue oxycodone, pancrealipase , IV fluids. Pt not sure he could hydrate himself today. (4) Constipation Current Visit: Yes Status: Acute Code(s): K59.00 - CONSTIPATION, UNSPECIFIED SNOMED Code(s): 30913044 Comment: Continue senna 2 hs. Pt declined my offer of additional laxatives at this time.
[2016-05-04] MEDS: Omeprazole CAP* 20 MG PO SCH (20:38)
[2016-05-04] MEDS: Senna TAB PO SCH (20:39)
[2016-05-04] MEDS: Temazepam CAP* 15 MG PO PRN (20:39)
[2016-05-05] MEDS: DOXYcycline IV* 100 MG in NS 0.9% 250 ML* 250 ML IVPB SCH (02:06)
[2016-05-05] MEDS: Sulfamethox/Trimethoprim DS 800/160* TAB PO SCH ×3 (05:27→22:05)
[2016-05-05] MEDS: NS 0.9% 1000 ML* 1,000 ML IV SCH (05:27)
[2016-05-05] MEDS: predniSONE TAB* 20 MG PO SCH ×2 (07:31→21:11)
[2016-05-05] MEDS: Rivaroxaban TAB(*) 15 MG PO SCH ×2 (07:31→21:12)
[2016-05-05] MEDS: Pancrelipase CAP* 5,000 UNITS CAP PO SCH ×3 (07:34→16:14)
--- NOTE | 2016-05-05 11:43 | PN ---
Progress Note - Progress Note SOAP: Subjective: DOS: 05/05/16 CC: pneumonia HPI: 61 year old man with pancreatic cancer, chemotherapy with fever, dyspnea, hypoxia, bilateral infiltrates on chest CT as well as PE. Off supplemental O2, breathing is better though still dyspnea on exertion. Eating ok. Some nausea with abx, better if he takes them with food, no abd pain or vomiting. Objective: [] Vital Signs Temp 36.2 C 05/05/16 07:49 Pulse 80 05/05/16 07:49 Resp 20 05/05/16 08:39 BP 110/68 05/05/16 07:49 Pulse Ox 99 05/05/16 07:49 Intake & Output 05/04/16 05/05/16 05/05/16 18:59 06:59 18:59 Intake Total 1424 650 Output Total 40 1050 Balance 1384 -400 Intake: IV Fluids 444 NS 0.9% 444 IVPB 280 ABX - DOXYCYCLINE 280 Oral 700 650 Output: Urine 40 1050 Other: Estimated Void Large # Bowel Movements 0 # Voids 2 Gen:NAD, not diaphoretic HEENT:PERRL, MMM Neck:supple Heart:RRR no murmur Lungs:CTA BL no wheeze Abd:+BS NTND soft Skin: no rash MSK: no spine tenderness 05/02/16 05/03/16 05/03/16 06:00 05:45 05:45 WBC 18.0 H RBC 3.02 L Hgb 8.9 L Hct 28 L MCV 92 MCH 30 MCHC 32 RDW 22 H Plt Count 380 MPV 8 Sodium 131 L Potassium 4.2 Chloride 105 Carbon Dioxide 23 Anion Gap 3 BUN 11 Creatinine 0.47 L Est GFR ( Amer) 232.7 Est GFR (Non-Af Amer) 181.0 BUN/Creatinine Ratio 23.4 H Glucose 80 Calcium 7.6 L Total Bilirubin 0.50 AST 73 H ALT 38 Alkaline Phosphatase 250 H Total Protein 4.5 L Albumin 2.0 L Globulin 2.5 Albumin/Globulin Ratio 0.8 L Blood Type O Positive Antibody Screen Negative Crossmatch See Detail Assessment: 1. pneumonica, diff dx includes PCP; improving 2. acute hypoxemic respiratory failure, present on admission, resolved 3. metastatic pancreatic cancer on chemotherapy 4. leukocytosis due to corticosteroids Plan: 1. had 6 days doxycycline, will DC 2. Change bactrim to 2 DS Q8hrs (ordered), taper steroids per oncology
--- NOTE | 2016-05-05 17:03 | PN ---
Progress Note - Progress Note Note: Pulm consult f/u note 05/05/16. Pt seen and examined at bedside. Reprots feeling better. SOB is improved. Is off O2 Active Medications Generic Name Dose Route Start Last Admin Trade Name Freq PRN Reason Stop Dose Admin Acetaminophen 650 mg 04/28/16 16:56 04/29/16 17:38 Tylenol Tab* PO 650 mg Q6H PRN Administration TEMP > 100.5 Albuterol 2.5 mg 04/29/16 13:19 Ventolin 2.5 Mg/3 Ml Neb.Angelica* INH Q4H PRN SOB/WHEEZING Gabapentin 600 mg 04/28/16 20:16 05/03/16 22:33 Neurontin Cap(*) PO 600 mg BEDTIME PRN Administration SLEEP Sodium Chloride 1,000 mls @ 50 mls/hr 04/30/16 09:14 05/05/16 05:27 Ns 0.9% 1000 Ml* IV 50 mls/hr PER RATE GILLIAN Administration Omeprazole 20 mg 04/28/16 21:00 05/04/16 20:38 Prilosec Cap* PO 20 mg BEDTIME GILLIAN Administration Ondansetron HCl 4 mg 04/28/16 21:07 Zofran Tab* PO Q6H PRN NAUSEA/VOMITING Oxycodone HCl 5 mg 04/28/16 20:54 05/03/16 05:15 Roxycodone Tab* PO 5 mg Q6H PRN Administration PAIN Pancrelipase 15,000 units 04/29/16 17:00 05/05/16 16:14 Zenpep Delayed Cap* PO Not Given TID WITH MEALS GILLIAN Prednisone 40 mg 05/03/16 09:00 05/05/16 07:31 Deltasone Tab* PO 40 mg BID GILLIAN Administration Prochlorperazine 10 mg 04/28/16 20:45 05/01/16 10:07 Compazine Tab* PO 10 mg Q6H PRN Administration NAUSEA Rivaroxaban 15 mg 05/03/16 09:00 05/05/16 07:31 Xarelto(*) PO 15 mg BID GILLIAN Administration Senna 2 tab 05/03/16 21:00 05/04/16 20:39 Senokot Tab* PO 2 tab BEDTIME GILLIAN Administration Temazepam 30 mg 05/03/16 08:17 05/04/16 20:39 Restoril Cap* PO 30 mg BEDTIME PRN Administration SLEEP Trimethoprim/Sulfamethoxazole 2 tab 05/05/16 14:00 05/05/16 14:08 Bactrim Ds 800/160 Tab* PO 2 tab Q8HR GILLIAN Administration Vital Signs Temp Pulse Resp BP Pulse Ox 97.2 F 63 18 102/69 98 05/05/16 15:11 05/05/16 16:54 05/05/16 16:54 05/05/16 15:11 05/05/16 16:54 Physical Exam: General - awake, alert, no acute resp distress HEENT- PERRLA, no icterus, moist mucous membranes Neck- no stridor, no jvd CVS- s1, S2+, normal rhythm, no murmur Resp- bilateral air entry, no wheeze Abdomen- soft, nontender, nondistended, bowel sounds present Ext- pulses+, warm, edema b/l LE 1+ Skin- intact, no rash, no dryness Neuro- awake, alert, oriented x3, no focal defecits Labs: 05/02/16 05/03/16 05/03/16 06:00 05:45 05:45 WBC 18.0 H RBC 3.02 L Hgb 8.9 L Hct 28 L MCV 92 MCH 30 MCHC 32 RDW 22 H Plt Count 380 MPV 8 Sodium 131 L Potassium 4.2 Chloride 105 Carbon Dioxide 23 Anion Gap 3 BUN 11 Creatinine 0.47 L Est GFR ( Amer) 232.7 Est GFR (Non-Af Amer) 181.0 BUN/Creatinine Ratio 23.4 H Glucose 80 Calcium 7.6 L Total Bilirubin 0.50 AST 73 H ALT 38 Alkaline Phosphatase 250 H Total Protein 4.5 L Albumin 2.0 L Globulin 2.5 Albumin/Globulin Ratio 0.8 L Blood Type O Positive Antibody Screen Negative Crossmatch See Detail Imaging: CT chest results 04/28 - scattered groundglass infiltrates, dense consolidation at bases, subsegmental PE in lower lobes, liver mets cxr 04/30 - increased pulm vasc congestion compared toCXR from 04/29 LE venous duplex 04/29 - negative for DVT Impression/Recommendations: 61y o m with metastatic pancreatic cancer admitted for lethargy, sSOB, transferred to ICU for hypoxic resp failure, hypotension and delirium. -Acute Hypoxic Respiratory Failure, resolved -Multifocal infiltrates, suspicious for health care associated pneumonia, less likely to be fungal or PCP-improving -Bilateral Pulmonary Emboli -Hypotension, hypovolemia - sepsis, resolved -Metastatic Pancreatic Cancer- awaiting hospice Pt off O2 PNA/PCP- improving On Bactrim currently Can titrate off prednisone On xarelto for PE Awaiting d/c to home hospice tomorrow
[2016-05-05] MEDS: Acetaminophen TAB* 325 MG PO PRN (19:40)
[2016-05-05] MEDS: Senna TAB PO SCH (21:10)
[2016-05-05] MEDS: Omeprazole CAP* 20 MG PO SCH (21:11)
[2016-05-05] MEDS: oxyCODONE TAB* 5 MG TAB PO PRN (21:19)
[2016-05-06] MEDS: Temazepam CAP* 15 MG PO PRN (02:20)
[2016-05-06] MEDS: NS 0.9% 1000 ML* 1,000 ML IV SCH ×2 (05:02→05:45)
[2016-05-06] MEDS: Sulfamethox/Trimethoprim DS 800/160* TAB PO SCH (05:46)
[2016-05-06 06:20] LABS: Hematocrit 31 % (42-52); Hemoglobin 9.8 g/dl (14.0-18.0); Mean Corpuscular HGB Conc 32 g/dl (31-36); Mean Corpuscular Hemoglobin 30 pg (27-31); Mean Corpuscular Volume 94 fL (80-94); Mean Platelet Volume 7 um3 (7.4-10.4); Red Blood Count 3.29 10^6/ul (4.0-5.4); White Blood Count 15.5 10^3/ul (3.5-10.8)
[2016-05-06 06:22] LABS: Comments Flag Yes; Red Cell Distribution Width 22 % (10.5-15)
[2016-05-06 06:31] LABS: Albumin 2.4 g/dL (3.2-5.2); BUN/Creatinine Ratio 18.5 (8-20); Calcium 7.9 mg/dL (8.6-10.3); EGFR African American 160.1 (>60); EGFR Non-African American 124.5 (>60); Globulin 2.7 g/dL (2-4); Potassium 4.2 mmol/L (3.5-5.0); Total Bilirubin 0.4 mg/dL (0.2-1.0); Total Protein 5.1 g/dL (6.4-8.9)
[2016-05-06 08:04] VITALS: BP 104/71
[2016-05-06] MEDS: Pancrelipase CAP* 5,000 UNITS CAP PO SCH (08:10)
[2016-05-06] MEDS: predniSONE TAB* 20 MG PO SCH (08:20)
[2016-05-06] MEDS: Rivaroxaban TAB(*) 15 MG PO SCH (08:20)
--- NOTE | 2016-05-06 11:55 | DS ---
DATE OF ADMISSION: 04/28/2016. DATE OF DISCHARGE: 05/06/2016. PRINCIPAL ACUTE DIAGNOSES: 1. Pneumonia. 2. Pulmonary embolus, acute. 3. Constipation. 4. Pancreatic cancer. 5. Respiratory failure. 6. SIRS criteria met for severe sepsis. 7. Dehydration. 8. Anemia. 9. Thrombocytosis. 10. Progression of his pancreatic cancer. 11. Hypotension. 12. Hypovolemia. DISCHARGE MEDICATIONS: 1. Xarelto 15 mg p.o. b.i.d. 2. Omeprazole 20 mg at bedtime. 3. Zofran prn nausea. 4. Pancrelipase 15,000 units p.o. t.i.d. with meals. 5. Bactrim two DS tablets p.o. q.8 hours times 14 additional days. 6. Temazepam 15 mg two tablets at bedtime. 7. Oxycodone 5 mg p.o. q.6 hours prn pain. 8. Prednisone taper as indicated on his discharge papers which include a one- half taper over four days to 10 mg every other day and then off. 9. Gabapentin 600 mg at bedtime. 10. Senna two tabs at bedtime. DISPOSITION: He will be discharged home with Hospice home care. DIET: He will follow a regular diet as tolerated. ACTIVITY LEVEL: As tolerated. FOLLOW-UP: The patient is invited to return to the office as needed depending on his needs for follow-up. He has home equipment already sent and will be delivered at 1:30 today and Hospice will open him at home. HOSPITAL COURSE: The patient was admitted to the hospital with the aforementioned diagnoses and as a result was pancultured and placed on IV antibiotic therapy prior to his admission with Levaquin and 1 liter of fluid at the [facility]. He was later admitted direct to the hospital for evaluation, including significant shortness of breath. A CTA was initiated on 04/28/2016 which revealed both pneumonia, bibasilar, and pulmonary embolus for which he was placed on anticoagulant therapy. A venous Doppler study was also obtained the day after which did not have any evidence of thrombosis in either lower extremity. He was first started out with Lovenox therapy and then later switched over to Xarelto 15 mg b.i.d. times 21 days and then will subsequently be switched to 20 mg daily thereafter. The CT angiogram did note some significant progression of his pancreatic cancer disease on the images and it was felt that he, given his poor performance status and failure of two lines of chemotherapy, was certainly a Hospice candidate and a consultation was initiated with [employer] and the hospice program. The family felt that they wanted to take the patient home for his final days and the Hospice home program will be initiated upon his discharge. In addition, his respiratory failure was such that we did initiate a consult with Dr. Miller for his pulmonary needs and she had followed along throughout the course of his hospital stay. In addition to that, a consultation was initiated with Infectious Disease as well and Dr. Sherwin Bales initiated antibiotic coverage for his needs. His pulmonary status did improve throughout the course of his stay and does not require any further oxygen therapy at this time. He will continue on his antibiotic course until completion of 14 days of the Bactrim and follow-up as needed. The Hospice doctor record will be Dr. Georgi Avendaño, for which the patient did not want to stay any longer on the day of his discharge to speak with Dr. Avendaño before he left and will follow-up with him on an as needed basis, both in the office and we will take care of him through the Hospice program. FREDY THOMPSON [id number]/[facility] #: [id number] JIMMIE
== END 2016-05-06 10:45 | disposition hospice, home (50) | DRG 871 ==
LOC: MED 16:13 → ICU 04-29 07:57 → MED 05-03 11:52
PROVIDERS: ADMIT Internal Medicine Hematology & Oncology; ATTEND Internal Medicine Hematology & Oncology
PROC: 30233N1 Transfusion of Nonautologous Red Blood Cells into Peripheral Vein, Percutaneous Approach (ICD-10-PCS; principal; 2016-05-02)
DX: A41.9 Sepsis, unspecified organism (principal); I26.99 Other pulmonary embolism without acute cor pulmonale; J96.01 Acute respiratory failure with hypoxia; C25.9 Malignant neoplasm of pancreas, unspecified; J18.9 Pneumonia, unspecified organism; C78.7 Secondary malignant neoplasm of liver and intrahepatic bile duct; D47.3 Essential (hemorrhagic) thrombocythemia; R65.20 Severe sepsis without septic shock; E86.0 Dehydration; I95.9 Hypotension, unspecified; E86.1 Hypovolemia; R53.1 Weakness; R07.81 Pleurodynia; D63.8 Anemia in other chronic diseases classified elsewhere; R41.0 Disorientation, unspecified; Z66 Do not resuscitate; K59.00 Constipation, unspecified; F51.04 Psychophysiologic insomnia; D72.829 Elevated white blood cell count, unspecified; R11.0 Nausea; T38.0X5A Adverse effect of glucocorticoids and synthetic analogues, initial encounter; R53.83 Other fatigue; Z92.3 Personal history of irradiation; Z80.3 Family history of malignant neoplasm of breast; Z92.21 Personal history of antineoplastic chemotherapy; Z79.01 Long term (current) use of anticoagulants
CPT/HCPCS: 36415; 36591; 36592; 71010; 71020; 71275; 80053; 83605; 83615; 83735; 84100; 84145; 85025; 85027; 85379; 86140; 86301; 86850; 86900; 86901; 86922; 87040; 87070; 87086; 87205; 87502; 93970; 94760; 96360; 96361; 96365; 99214; 99222; 99232; 99233; 99239; A9270-GY; G0463; J0692; J1642; J1650; J2930; J7512; P9040; Q0164; Q9967

== ENCOUNTER 2016-05-22 09:39 | Observation (INO) | payer OTHER ==
[2016-05-22] MEDS ORDERED: Morphine ORAL CONCENTRATE* 5 MG/0.25 ML ORAL.SYRIN SL ONE (10:31)
[2016-05-22] MEDS ORDERED: HYDROmorphone INJ* 1 MG/ML CARPUJECT SYRINGE IM ONE (10:39)
[2016-05-22] MEDS ORDERED: HYDROmorphone INJ* 1 MG/ML CARPUJECT SYRINGE IV SLOW PU ONE (10:44)
[2016-05-22] MEDS ORDERED: LORazepam INJ* 2 MG/ML 1 ML VIAL IV ONE (10:45)
[2016-05-22] MEDS ORDERED: Ondansetron INJ* 2 MG/ML VIAL IV ONE ×2 (10:45→13:47)
--- NOTE | 2016-05-22 12:49 | RAD ---
INDICATION: Trauma, back pain. COMPARISON: Comparison is made with a prior CT angiogram of the chest from April [address] of the abdomen and pelvis from February 01, 2016. TECHNIQUE: Contiguous axial sections were obtained beginning above the T11 vertebra and continuing through the L5-S1 disc space. Images were reconstructed in the sagittal and coronal planes. FINDINGS: There is a moderate burst fracture of the superior portion of the T11 vertebral body with loss of height of approximately 50%. In addition there is mild retropulsion of fracture fragments into the anterior spinal canal approximately 5 mm causing mild spinal canal narrowing. The posterior elements appear intact. No other acute fractures are seen. There is unilateral spondylolysis at the L2 level on the right side which is a chronic finding. At the L3-L4 level there is a mild broad-based disc bulge and mild hypertrophic changes within the facet joints. No significant spinal canal narrowing is present. Neural foramen appear patent on both sides. At the L4-L5 level there is a minimal broad-based disc bulge and mild hypertrophic changes within the facet joints. No significant spinal canal or neural foraminal narrowing is seen. At the L5-S1 level there is also a minimal broad-based disc bulge. No significant spinal canal or neural foraminal narrowing is seen. The results of this exam were discussed with the referring clinician. IMPRESSION: MODERATE BURST FRACTURE OF THE T12 VERTEBRAL BODY. RECOMMEND OBTAINING EITHER A X-RAY OF THE DORSAL SPINE OR CT OF THE DORSAL SPINE TO EVALUATE THE ADJACENT DORSAL VERTEBRA.
[2016-05-22] MEDS ORDERED: HYDROmorphone INJ* 1 MG/ML CARPUJECT SYRINGE IV ONE (13:47)
--- NOTE | 2016-05-22 13:58 | RAD ---
HISTORY: Trauma, back pain COMPARISONS: CT of the chest dated April 28, 2016 TECHNIQUE: Multiple contiguous axial CT scans were obtained of the thoracic spine without intravenous contrast, with coronal and sagittal multiplanar reformations. FINDINGS: SPINAL CANAL: Evaluation of the central canal is limited on CT technique; however, there is no obvious canalicular mass or epidural hemorrhage. ALIGNMENT: The alignment is normal. VERTEBRAL BODIES: There is diffuse osteopenia. There has been interval mild loss of vertebral body height at T11 with anterior wedging consistent with a compression fracture, new from 2016. There is minimal osseous retropulsion. There is no significant narrowing of central canal. 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 MUSCULATURE: Unremarkable INTERVERTEBRAL DISCS: There is diffuse loss of intervertebral disc height throughout the spine. AXIAL IMAGES: There is no osseous central canal stenosis or neuroforaminal narrowing. SOFT TISSUES: The visualized soft tissues of the chest and abdomen are unremarkable. OTHER: None IMPRESSION: NEW COMPRESSION FRACTURE OF T11, WITH MINIMAL OSSEOUS RETROPULSION.
[2016-05-22] MEDS ORDERED: Acetaminophen TAB* 325 MG PO PRN (14:54)
[2016-05-22] MEDS ORDERED: PROCHLORPERAZINE INJ 5 MG/ML 2 ML VIAL IV PRN (14:54)
[2016-05-22] MEDS ORDERED: HYDROmorphone INJ* 1 MG/ML CARPUJECT SYRINGE ONE (15:47)
[2016-05-22] MEDS: HYDROmorphone INJ* 1 MG/ML CARPUJECT SYRINGE IV SLOW PU PRN ×2 (15:49→19:24)
--- NOTE | 2016-05-22 16:27 | ED ---
Chandler Winters Benjamin, scribed for Sean Dodge MD on 05/22/16 at 1054 . Back Pain - HPI Summary HPI Summary: 61yo male BIB EMS for falling backwards and langing on his butt. Pt reports pain in upper and mid back. Pt states that all of his sensations are intact. Denies urinary or bowel incontinence. - History of Current Complaint Chief Complaint: EDTraumaMultiple Stated Complaint: FALL Time Seen by Provider: 05/22/16 10:38 Hx Obtained From: Patient Onset/Duration: Sudden Onset, Lasting Hours, Still Present Onset/Duration: Started Hours Ago, Traumatic, Still Present Timing: Constant Back Pain Location: Is Discrete @ - upper and mid back Severity Initially: Severe Severity Currently: Severe Pain Intensity: 10 Pain Scale Used: 0-10 Numeric Aggravating Symptom(s): Movement Alleviating Symptom(s): Rest Associated Signs And Symptoms: Positive: Negative. Negative: Bladder Incontinence, Bowel Incontinence - Allergies/Home Medications Allergies/Adverse Reactions: Allergies Allergy/AdvReac Type Severity Reaction Status Date / Time No Known Allergies Allergy Verified 03/19/16 12:12 PMH/Surg Hx/FS Hx/Imm Hx Endocrine/Hematology History: Denies: Hx Diabetes, Hx Systemic Lupus Erythematosus Cardiovascular History: Denies: Hx Congestive Heart Failure, Hx Hypertension Respiratory History: Reports: Hx Sleep Apnea Denies: Hx Chronic Obstructive Pulmonary Disease (COPD) GI History: Reports: Hx Hiatal Hernia - 2000 SURGERY TO REPAIR, Hx Jaundice, Other GI Disorders - PANCREATIC MASS History: Reports: Hx Kidney Stones - AUGUST 2015, Other Problems/Disorders - HX OF NEPHRITIS AGE 8 [id number] Denies: Hx Dialysis, Hx Renal Disease Musculoskeletal History: Denies: Hx Rheumatoid Arthritis, Hx Back Problems Sensory History: Reports: Hx Contacts or Glasses Denies: Hx Hearing Aid Opthamlomology History: Reports: Hx Contacts or Glasses Neurological History: Denies: Hx Dementia, Hx Seizures Psychiatric History: Reports: Hx Depression - CONTROL WITH MEDS - Cancer History Cancer Type, Location and Year: pancreatic cancer to the head of the pancreas DX 08/23/15 Hx Chemotherapy: Yes - Surgical History Surgery Procedure, Year, and Place: 10/14/2012 [place] [facility] [place] KN[place]ROSCOPIC SURGERY, [facility] [place]. [place] [facility] [place] [facility] [place] Endoscopy procedure [address] Davila. 10/04/2015 WHIPPLE PROCEDURE [facility]-Dr. Salas & Dr. Concepcion. Port inserted 11/08/15 - Dr. Deshpande Hx Anesthesia Reactions: Yes - VOMITING Infectious Disease History: No Infectious Disease History: Denies: Traveled Outside the [place] in Last 30 Days - Family History Known Family History: Negative: Cardiac Disease, Hypertension, Diabetes - Social History Occupation: Retired Alcohol Use: None Substance Use Type: Reports: None Hx Tobacco Use: Yes Smoking Status (MU): Former Smoker Type: Cigarettes Amount Used/How Often: 1/2-1 PPD Have You Smoked in the Last Year: No Review of Systems Constitutional: Negative Eyes: Negative ENT: Negative Cardiovascular: Negative Respiratory: Negative Gastrointestinal: Negative Genitourinary: Negative Positive: Myalgia - upper and mid back pain, Decreased ROM Skin: Negative Neurological: Negative Psychological: Normal All Other Systems Reviewed And Are Negative: Yes Physical Exam Triage Information Reviewed: Yes Vital Signs On Initial Exam: Initial Vitals Temp Pulse Resp BP Pulse Ox 98.6 F 72 16 122/86 99 05/22/16 09:48 05/22/16 09:48 05/22/16 09:48 05/22/16 09:48 05/22/16 09:48 Vital Signs Reviewed: Yes Appearance: Positive: Well-Appearing, No Pain Distress, Well-Nourished Skin: Positive: Warm, Skin Color Reflects Adequate Perfusion, Dry Head/Face: Positive: Normal Head/Face Inspection Eyes: Positive: Normal ENT: Positive: Normal ENT inspection, Hearing grossly normal, Pharynx normal, TMs normal Neck: Positive: Supple, Nontender Respiratory/Lung Sounds: Positive: Clear to Auscultation, Breath Sounds Present Cardiovascular: Positive: RRR Abdomen Description: Positive: Nontender, No Organomegaly, Soft Bowel Sounds: Positive: Present Musculoskeletal: Positive: Limited @ - torso due to pain, Pain @ - right perilumbar tenderness Neurological: Positive: Sensory/Motor Intact, Alert, Oriented to Person Place, Time, CN Intact II-III Psychiatric: Positive: Affect/Mood Appropriate - Blunt Coma Scale Coma Scale Total: 15 Diagnostics - Vital Signs Vital Signs Temp Pulse Resp BP Pulse Ox 05/22/16 09:48 98.6 F 72 16 122/86 99 - Laboratory Lab Statement: Any lab studies that have been ordered have been reviewed, and results considered in the medical decision making process. - CT CT L spine CT Interpretation: Positive (See Comments) - IMPRESSION: MODERATE BURST FRACTURE OF THE T12 VERTEBRAL BODY. RECOMMEND OBTAINING EITHER A X-RAY OF THE DORSAL SPINE OR CT OF THE DORSAL SPINE TO EVALUATE THE ADJACENT DORSAL VERTEBRA. CT Interpretation Completed By: Radiologist Back Pain Course/Dx - Course Course Of Treatment: Mr. Carter presented after having a mechanical fall backwards and C/O severe mid-back pain with any movement. He was not incontinent and was able to move all of his extremities. He was found to have a burst fracture of T11 without any significant retropulsion. I could not get his pain under control with parenteral narcotics and benzodiazepines as muscle relaxants. - Diagnoses Provider Diagnoses: Compression fracture - Provider Notifications Discussed Care of Patient With: Dr. Burrows Instructed by Provider To: MD Will See In ED Discharge - Discharge Plan Condition: Stable Disposition: ADMITTED TO [facility] The documentation as recorded by the Chandler michael Benjamin accurately reflects the service I personally performed and the decisions made by me, Sean Dodge MD.
[2016-05-22] MEDS ORDERED: Temazepam CAP* 15 MG PO PRN (16:44)
[2016-05-22] MEDS ORDERED: Gabapentin CAP(*) 300 MG PO PRN (16:44)
[2016-05-22] MEDS ORDERED: oxyCODONE TAB* 5 MG TAB PO PRN (16:44)
[2016-05-22] MEDS ORDERED: Dexamethasone IV* 4 MG in NS 0.9% 50 ML* 50 ML IVPB SCH (17:00)
[2016-05-22] MEDS ORDERED: Rivaroxaban TAB(*) 20 MG TAB PO SCH (17:30)
--- NOTE | 2016-05-22 18:07 | PN ---
Hospitalist Progress Note HOSPITALIST ADDENDUM Case reviewed and d/w Doug DANIEL. Mr. Carter is a 61yo M with h/o metastatic pancreatic CA on home Hospice who sustained a fall at home today and developed intractable pain. Plan to admit for pain management and hopefully he'll be able to return home with Hospice. Agree with current management.
[2016-05-22] MEDS: Pancrelipase CAP* 5,000 UNITS CAP PO SCH (18:12)
[2016-05-22] MEDS: Dexamethasone IV* 4 MG/ML 1 ML (4 MG) IV SLOW PU SCH (18:14)
--- NOTE | 2016-05-22 19:46 | HP ---
ADMISSION HISTORY AND PHYSICAL: DATE OF ADMISSION: PRIMARY CARE PROVIDER: Dr. Keenan Bedolla. PRIMARY ONCOLOGIST: Dr. Johnson. ADMITTING PROVIDER: FREDY Rizo SUPERVISING PHYSICIAN: Dr. Vane Whalen.* (DICTATED BY FREDY RIZO) CHIEF COMPLAINT: Back pain. HISTORY OF PRESENT ILLNESS: This is a 61-year-old gentleman with metastatic pancreatic cancer, who was recently discharged from the hospital with hospice care at home. He was attempting to do a load of laundry earlier today and lost his balance and fell backwards landing on his buttocks. He immediately had significant back pain that was uncontrollable with medications available at home and with consultation with hospice nurses. The patient was subsequently brought to the emergency department for further evaluation and was found to have fractures of both T11 and T12. The patient and his family have decided to temporarily sign off hospice for hospitalization for pain management, but do have interest in resuming hospice care as soon as his pain is adequately controlled. During the patient's last hospitalization, he was treated for pneumonia as well as a pulmonary embolus. He was discharged with Xarelto and 14 days of Bactrim. He has completed his Bactrim therapy and remains on Xarelto. He states that he has not had any shortness of breath or chest pain since returning home. He does have some physical instability and overall weakness, but has been fairly functional being able to ambulate around the house and get himself meals. His daughter is staying with him currently to provide additional care. In regards to the patient's back pain, he states that his pain is mostly right- sided but concentrated in his back. He denies any lower extremity pain. He does have some chronic numbness since completing chemotherapy, but denies any new numbness or tingling since acute injury earlier today. PAST MEDICAL HISTORY: 1. Metastatic pancreatic cancer, who unfortunately failed 2 courses of chemotherapy. He has been on hospice care up until earlier today. 2. PE, anticoagulated with Xarelto. 3. Recent pneumonia. HOME MEDICATIONS: 1. Acetaminophen 1000 mg p.o. q.4 hours as needed for pain. 2. Neurontin 600 mg p.o. at bedtime. 3. Omeprazole 20 mg p.o. daily. 4. Pancrelipase 24,000 units p.o. with meals 3 times daily. 5. Xarelto 20 mg p.o. daily. 6. Senna 2 mg p.o. daily. 7. Temazepam 30 mg p.o. at bedtime. 8. Oxycodone 5 mg p.o. q.6 hours as needed for pain. 9. Prednisone 10 mg p.o. daily. SOCIAL HISTORY: The patient is living at home with hospice services. His daughter is staying with him and he also has a sister available to provide additional help at home if necessary. REVIEW OF SYSTEMS: As noted above in HPI and otherwise negative. PHYSICAL EXAMINATION GENERAL: This is a very pleasant 61-year-old gentleman who appears older than his stated age and is accompanied by his daughter, Chuyita, who is in no acute distress, but appears to be quite lethargic. INITIAL VITAL SIGNS: Temperature 98.6 degrees Fahrenheit, pulse 72 beats per minute, respiratory rate 16 per minute, oxygen saturation 99% on room air, and blood pressure 122/86 mmHg. HEENT: Head is normocephalic, atraumatic with moist mucous membranes. RESPIRATORY: Lungs are clear to auscultation without wheezes, crackles, or rhonchi. CARDIOVASCULAR: Heart has a regular rate and rhythm without murmurs, rubs, or gallops. ABDOMEN: Soft and nontender to palpation. EXTREMITIES: No edema appreciated. NEURO: The patient has intact strength in all 4 extremities and sensation is intact in both lower extremities. Gait was not assessed. DIAGNOSTIC STUDIES/LAB DATA: Laboratory evaluation none. Imaging: CT of the thoracic spine shows a new compression fracture at T11 with minimal retropulsion. Lumbar spine CT shows a burst fracture at T12. ASSESSMENT AND PLAN: This is a 61-year-old gentleman with advanced pancreatic cancer, receiving hospice services at home as well as recent diagnosis of pulmonary embolus and hospitalization for pneumonia, who sustained a fall at home resulting in fracture of T11 and T12. The patient has elected to temporarily sign off from hospice services for pain management for his new vertebral fractures. 1. T11 and T12 vertebral fracture secondary to mechanical fall: The patient is not in any pain at rest, but any movement causes a significant amount of pain. He has been using oxycodone at home. It sounds like about 20 to 30 mg daily for his abdominal pain related to his malignancy. We will plan to start OxyContin at this time for additional long-acting relief at 20 mg twice daily and can use additional immediate-release oxycodone for breakthrough pain and if it is severe, use IV narcotics. We will start IV steroids for adjunct relief and can use benzo if necessary for a muscle relaxant. We will request Physical Therapy consult tomorrow morning to evaluate the patient's ability to transfer and ambulate independently and can formulate a better discharge plan with that information. 2. Metastatic pancreatic cancer, followed by Dr. Johnson. The patient has been receiving hospice services after failing medical treatment options. The patient has temporarily signed off hospice, but is interested in resuming services following discharge. 3. Recent pulmonary embolus - plan to continue Xarelto. The patient is asymptomatic at this time. 4. Recent pneumonia - the patient has completed his antibiotic therapy as prescribed and was otherwise asymptomatic. No further intervention required. 5. Code status: The patient is DNR/DNI. 6. DVT prophylaxis: The patient is chronically anticoagulated on Xarelto. No further prophylaxis is necessary. 7. Healthcare proxy is the patient's daughter, Chuyita. DISPOSITION: The patient is being admitted to observation status for pain management secondary to acute vertebral fracture. Pending physical therapy evaluation tomorrow, anticipate possible discharge home with resuming hospice services tomorrow. FREDY RIZO CC: Dr. Keenan Bedolla; Dr. Johnson * [id number]/[facility] #: [id number] [facility]
[2016-05-22] MEDS: oxyCODONE SR TAB(*) 20 MG TAB.SR PO SCH (21:54)
[2016-05-23] MEDS: Dexamethasone IV* 4 MG/ML 1 ML (4 MG) IV SLOW PU SCH ×3 (00:02→11:46)
[2016-05-23] MEDS ORDERED: Omeprazole CAP* 20 MG PO SCH (09:00)
[2016-05-23] MEDS ORDERED: Senna TAB PO SCH (09:00)
[2016-05-23] MEDS: Pancrelipase CAP* 5,000 UNITS CAP PO SCH ×2 (09:23→11:46)
[2016-05-23] MEDS: oxyCODONE SR TAB(*) 20 MG TAB.SR PO SCH (09:24)
[2016-05-23] MEDS: HYDROmorphone INJ* 1 MG/ML CARPUJECT SYRINGE IV SLOW PU PRN (12:57)
[2016-05-23 13:31] VITALS: BP 114/74
--- NOTE | 2016-05-24 02:48 | DS ---
DISCHARGE SUMMARY: DATE OF ADMISSION: 05/22/16 DATE OF DISCHARGE: 05/23/16 PRIMARY CARE PROVIDER: Keenan Bedolla MD PRIMARY DIAGNOSIS: T11 burst fracture with intractable pain. SECONDARY DIAGNOSES: 1. Metastatic pancreatic cancer. 2. History of pulmonary embolism, on Xarelto. 3. Recent pneumonia. MEDICATIONS ON DISCHARGE: Include: 1. Acetaminophen 1000 mg 4 times a day as needed. 2. Temazepam 30 mg at bedtime. 3. Senna 2 tabs daily. 3. Rivaroxaban 20 mg daily. 4. Prednisone 10 mg daily. 5. Oxycodone 5 mg every 6 hours as needed for pain. 6. Omeprazole 20 mg daily. 7. Gabapentin 600 mg at bedtime as needed. 8. Pancrelipase 24,000 units 3 times a day with meals. 9. Oxycodone SR 20 mg twice daily. New prescription sent to pharmacy. PERTINENT IMAGING DATA: CT thoracic spine, impression: New compression fracture of T11 with minimal osseous retropulsion. HISTORY OF PRESENT ILLNESS: This is a 61-year-old male with past medical history as outlined in the history of present illness on the day of admission including metastatic pancreatic cancer, was discharged from the hospital recently to home hospice care. He is doing well at home. He is essentially 24/ 7 care from multiple relatives; however, sustained a fall while doing laundry with _immediate____ new and severe pain. He presented to the emergency room where he underwent a CT imaging of his spine notable for T11 burst fracture. He was admitted to the hospital for further pain management. He was started on long-acting oxycodone as indicated above with excellent pain control. On the day of discharge, the patient noted no pain with relatively little sedation. He was discharged from the hospice secondary to receiving a CAT scan; however, will be resigned on today upon discharge home. The patient does have family with him 24 hours a day, 7 days a week for assistance at home. He was worked with physical therapy, was able to get out of bed and ambulate with a walker without difficulty and without intractable pain. TIME SPENT: Greater than 30 minutes were spent on the discharge of this patient with greater than half spent [id number] with the patient. CC: Keenan Bedolla MD; Zenon Johnson MD* [id number]/[facility] #: [id number] [facility]
== END 2016-05-23 13:00 | disposition hospice, home (50) ==
LOC: ED 09:39 → MEDTELE 14:52
PROVIDERS: ADMIT Internal Medicine; ATTEND Internal Medicine
DX: S22.081A Stable burst fracture of T11-T12 vertebra, initial encounter for closed fracture (principal); W01.0XXA Fall on same level from slipping, tripping and stumbling without subsequent striking against object, initial encounter; Y93.E2 Activity, laundry; Y92.009 Unspecified place in unspecified non-institutional (private) residence as the place of occurrence of the external cause; C25.9 Malignant neoplasm of pancreas, unspecified; C79.9 Secondary malignant neoplasm of unspecified site; Z86.711 Personal history of pulmonary embolism; Z79.01 Long term (current) use of anticoagulants; Z79.899 Other long term (current) drug therapy; Z87.891 Personal history of nicotine dependence
CPT/HCPCS: 72128; 72131; 96374; 96375; 96376; 99284; A9270-GY; G0378; G8978-GP-CJ; G8979-GP-CJ; G8980-GP-CJ; J1100; J1170; J2060; J2405